=== PATIENT | female | born 1935 | race Caucasian/White ===

== ENCOUNTER 2017-01-05 17:39 | Emergency (ER) | payer MEDICARE, OTHER, MEDICAID ==
[2017-01-05] MEDS ORDERED: Sodium Chloride 0.9% 10 ML Syringe FLUSH PRN (18:06)
[2017-01-05] MEDS ORDERED: Sodium Chloride 0.9% 500 ML IV SCH (18:15)
--- NOTE | 2017-01-05 18:22 | EDM.PDOC ---
ED HPI GENERAL MEDICAL PROBLEM - General Chief Complaint: General Stated Complaint: hypotension, fatigue Time Seen by Provider: 01/05/17 17:55 Source of Information: Reports: Patient History Limitations: Reports: No limitations - History of Present Illness INITIAL COMMENTS - FREE TEXT/NARRATIVE: The patient presents with complaint of suprapubic pain, nausea, and bilateral costophrenic angle pain as well as lethargy and fatigue, myalgias, and chills. She also has nausea, but denies vomiting, diarrhea, hematochezia, and melena. She denies dysuria but reports foul smelling urine. She denies hematuria. She estevan vaginal discharge. She admits to headache but denies neck or back pain or stiffness. She denies cough or chest congestion. She denies fever. Left Hip Pain Score (Numeric/FACES): 10 - Related Data Allergies Allergy/AdvReac Type Severity Reaction Status Date / Time codeine Allergy Chest Verified 01/05/17 17:51 Presssure Home Meds: Home Meds Aspirin [Halfprin] 81 mg PO BRK 02/26/15 [History] Carisoprodol [Soma] 350 mg PO TID 02/26/15 [History] Fluticasone/Salmeterol [Advair 250-50 Diskus] 1 puff INH BID 02/26/15 [History] Gemfibrozil 600 mg PO BID 02/26/15 [History] Hydrocodone/Acetaminophen [Lortab 10-325 mg Tablet] 1 each PO DAILY PRN [History] Isosorbide Mononitrate [Imdur] 30 mg PO QPM 02/26/15 [History] Levothyroxine 75 mcg PO ACBREAKFAST 02/26/15 [History] Sucralfate [Carafate] 1 gm PO QID 02/26/15 [History] Tiotropium [Spiriva HandiHaler] 18 mcg INH QAM@0700 02/26/15 [History] amLODIPine [Norvasc] 5 mg PO QAM 02/26/15 [History] Albuterol Sulfate [Albuterol Sulfate HFA] 2 puff INH Q6HR 04/18/15 [History] Amitriptyline [Elavil] 50 mg PO BEDTIME 04/18/15 [History] Furosemide [Lasix] 40 mg PO DAILY 04/18/15 [History] Hydrocodone/Acetaminophen [[place] 10-325] 1 tab PO QID 04/18/15 [History] Potassium Chloride 20 meq PO BID 04/18/15 [History] cycloSPORINE [Restasis] 1 drop EYEBOTH BEDTIME 04/18/15 [History] Acetaminophen 650 mg PO Q12HR PRN 01/05/17 [History] Acetaminophen [Pain Relief] 650 mg PO 2000 01/05/17 [History] Albuterol/Ipratropium [DuoNeb 3.0-0.5 MG/3 ML] 1 appful INH Q4HR PRN 01/05/17 [ History] Calcium Carbonate [Tums] 1,000 mg PO Q6HR PRN 01/05/17 [History] Carvedilol [Coreg] 12.5 mg PO BIDM 01/05/17 [History] DULoxetine HCl [Cymbalta] 30 mg PO DAILY 01/05/17 [History] Ferrous Sulfate 325 mg PO DAILY 01/05/17 [History] Gabapentin [Neurontin] 200 mg PO TID 01/05/17 [History] Lidocaine 1 each TP DAILY 01/05/17 [History] Nitroglycerin 0.4 mg SL ASDIRECTED PRN 01/05/17 [History] Saccharomyces Boulardii [Probiotic] 250 mg PO BID 01/05/17 [History] buPROPion [Wellbutrin XL] 300 mg PO DAILY 01/05/17 [History] clonazePAM [Klonopin] 0.5 mg PO BEDTIME 01/05/17 [History] Past Medical History Other HEENT History: wears glasses. - Past Surgical History Other Neurological Surgeries/Procedures: herniated disc surgery Other Musculoskeletal Surgeries/Procedures:: back surgery x 3 Social & Family History - Tobacco Use Smoking Status *Q: Current Every Day Smoker Years of Tobacco use: 60 Used Tobacco, but Quit: No Second Hand Smoke Exposure: No - Recreational Drug Use Recreational Drug Use: No ED ROS GENERAL - Review of Systems Review Of Systems: ROS reveals no pertinent complaints other than HPI. ED EXAM, GENERAL - Physical Exam Exam: See Below Exam Limited By: No limitations General Appearance: alert, WD/WN, no apparent distress Eye Exam: bilateral eye: EOMI, normal inspection, PERRL Ears: normal external exam, normal canal, hearing grossly normal, normal TMs Ear Exam: bilateral ear: auricle normal, canal normal, TM normal Nose: normal inspection, normal mucosa, no blood Throat/Mouth: Normal inspection, Normal lips, Normal teeth, Normal gums, Normal oropharynx, Normal voice, No airway compromise Head: atraumatic, normocephalic Neck: normal inspection, supple, non-tender, full range of motion, other (No nuchal rigidity.). No: lymphadenopathy (L), lymphadenopathy (R), tender lateral , tender midline Respiratory/Chest: no respiratory distress, lungs clear, normal breath sounds, no accessory muscle use, chest non-tender Cardiovascular: normal peripheral pulses, regular rate, rhythm, no edema, no gallop, no murmur, no rub Peripheral Pulses: 2+: radial (L), radial (R), dorsalis pedis (L), dorsalis pedis (R) GI/Abdominal: normal bowel sounds, soft, non tender, no organomegaly, no distention, other (Tenderness on palpation over bladder. ). No: distended, guarding, rigid, rebound, tender Back Exam: normal inspection, full range of motion, CVA tenderness (L), CVA tenderness (R). No: paraspinal tenderness, vertebral tenderness Extremities: normal inspection, normal range of motion, non-tender, no pedal edema, normal capillary refill. No: pedal edema, Loretta's Sign Neurological: alert, oriented, CN II-XII intact, normal cognition, normal gait, normal reflexes, no motor/sensory deficits Psychiatric: normal affect, normal mood Skin Exam: Warm, Dry, Intact, Normal color, No rash Course - Vital Signs Last Recorded V/S: Last Vital Signs Temp 37.1 C 01/05/17 17:40 Pulse 81 01/05/17 17:40 Resp 18 01/05/17 17:40 BP 71/45 L 01/05/17 17:40 Pulse Ox 97 01/05/17 17:40 - Orders/Labs/Meds Orders: Active Orders 24 hr Category Date Time Status Peripheral IV Care [RC] . DIRECTED Care 01/05/17 18:06 Active Abdomen Pelvis w Cont [CT] Stat Exams 01/05/17 18:51 Taken CULTURE URINE [RM] Stat Lab 01/05/17 18:35 Ordered Sodium Chloride 0.9% [Normal Saline] 500 ml Med 01/05/17 18:15 Active IV .BOLUS Sodium Chloride 0.9% [Saline Flush] Med 01/05/17 18:06 Active 10 ml FLUSH ASDIRECTED PRN Peripheral IV Insertion Adult [OM.PC] Routine Oth 01/05/17 18:06 Ordered Medication Orders Sodium Chloride (Normal Saline) 500 mls @ 500 mls/hr IV .BOLUS ROSITA Last Admin: 01/05/17 18:45 Dose: 500 mls/hr Sodium Chloride (Saline Flush) 10 ml FLUSH ASDIRECTED PRN PRN Reason: Keep Vein Open Labs: Laboratory Tests 01/05/17 01/05/17 01/05/17 Range/Units 18:06 18:06 18:35 WBC 8.8 (4.0-10.2) K/uL RBC 3.01 L (3.77-5.09) M/uL Hgb 9.2 L (11.7-15.5) g/dL Hct 28.1 L (34.0-46.0) % MCV 93.4 (84.0-98.0) fL MCH 30.6 (28.2-33.3) pg MCHC 32.7 (31.7-36.0) g/dL RDW 13.3 (11.2-14.1) % Plt Count 241 (150-350) K/uL Neut % (Auto) 85.8 H (45.0-80.0) % Lymph % (Auto) 8.9 L (10.0-50.0) % Walsh % (Auto) 5.0 (2.0-14.0) % Eos % (Auto) 0.1 (0.0-5.0) % Baso % (Auto) 0.2 (0.0-2.0) % Neut # (Auto) 7.50 H (1.40-7.00) K/uL Lymph # (Auto) 0.78 (0.50-3.50) K/uL Walsh # (Auto) 0.44 (0.00-1.00) K/uL Eos # (Auto) 0.01 (0.00-0.50) K/uL Baso # (Auto) 0.02 (0.00-0.20) K/uL Sodium 133 L (136-145) mmol/L Potassium 3.6 (3.5-5.1) mmol/L Chloride 100 (98-107) mmol/L Carbon Dioxide 21.6 (21.0-32.0) mmol/L BUN 13 (7-18) mg/dL Creatinine 0.71 (0.51-1.17) mg/dL Est Cr Clr Drug Dosing 44.28 mL/min Estimated GFR (MDRD) > 60 mL/min Glucose 93 (74-106) mg/dL Calcium 8.6 (8.5-10.1) mg/dL Total Bilirubin 0.3 (0.2-1.0) mg/dL AST 56 H (15-37) U/L ALT 21 (12-78) U/L Alkaline Phosphatase 94 (46-116) IU/L C-Reactive Protein 17.1 H (<=0.9) mg/dL Total Protein 6.5 (6.4-8.2) g/dL Albumin 2.5 L (3.4-5.0) g/dL Specimen Type Urincc Urine Color Yellow Urine Appearance Slightly cloudy Urine pH 5.5 (5.0-9.0) Ur Specific [place] <= 1.005 (1.005-1.030) Urine Protein Negative (NEGATIVE) mg/dL Urine Glucose (UA) Negative (NEGATIVE) mg/dL Urine Ketones Negative (NEGATIVE) mg/dL Urine Occult Blood Negative (NEGATIVE) Urine Nitrite Positive H (NEGATIVE) Urine Bilirubin Negative (NEGATIVE) Urine Urobilinogen 0.2 (0.2-1.0) E.U./dL Ur Leukocyte Esterase Small H (NEGATIVE) Urine RBC Not seen /HPF Urine WBC 5-10 H /HPF Ur Epithelial Cells Rare /LPF Urine Bacteria Many H (NONE TO FEW) /HPF Meds: Medications Generic Name Dose Route Start Last Admin Trade Name Freq PRN Reason Stop Dose Admin Sodium Chloride 500 mls @ 500 mls/hr 01/05/17 18:15 01/05/17 18:45 Normal Saline IV 500 mls/hr .BOLUS ROSITA Administration Sodium Chloride 10 ml 01/05/17 18:06 Saline Flush FLUSH ASDIRECTED PRN Keep Vein Open Discontinued Medications Generic Name Dose Route Start Last Admin Trade Name Freq PRN Reason Stop Dose Admin Iopamidol 100 ml 01/05/17 19:30 01/05/17 20:08 Isovue-300 (61%) IVPUSH 01/05/17 19:31 100 ml ONETIME ONE Administration - Radiology Interpretation Free Text/Narrative:: CT of the abdomen and pelvis shows bilateral benign renal cysts and dilatation of biliary tree s/p cholecystectomy. Departure - Departure Time of Disposition: 21:18 Disposition: Home, Self-Care 01 Clinical Impression: Hyponatremia, Normocytic anemia, Elevated C-reactive protein (CRP), Hypoalbuminemia, Elevated AST (SGOT) UTI (urinary tract infection) Qualifiers: Urinary tract infection type: site unspecified Hematuria presence: without hematuria Qualified Code(s): N39.0 - Urinary tract infection, site not specified Forms: ED Department Discharge - My Orders Last 24 Hours: My Active Orders 01/05/17 18:06 Peripheral IV Care [RC] . DIRECTED Sodium Chloride 0.9% [Saline Flush] 10 ml FLUSH ASDIRECTED PRN Peripheral IV Insertion Adult [OM.PC] Routine 01/05/17 18:15 Sodium Chloride 0.9% [Normal Saline] 500 ml IV .BOLUS 01/05/17 18:35 CULTURE URINE [RM] Stat 01/05/17 18:51 Abdomen Pelvis w Cont [CT] Stat - Assessment/Plan Last 24 Hours: My Active Orders 01/05/17 18:06 Peripheral IV Care [RC] . DIRECTED Sodium Chloride 0.9% [Saline Flush] 10 ml FLUSH ASDIRECTED PRN Peripheral IV Insertion Adult [OM.PC] Routine 01/05/17 18:15 Sodium Chloride 0.9% [Normal Saline] 500 ml IV .BOLUS 01/05/17 18:35 CULTURE URINE [RM] Stat 01/05/17 18:51 Abdomen Pelvis w Cont [CT] Stat Assessment:: UTI. Plan: 1. Given NS 500 mL IV bolus in ER. 2. Reassured patient that CT of abdomen pelvis shows no acute abnormalities. 3. Take-home prescription for Ciprofloxacin 500 mg tabs, 1 tab PO BID, 3 days ( 6 tabs) and prescription for further 4 day course (8 tabs), total of 7 days. 4. OTC acetaminophen 325-650 mg or ibuprofen 400 mg every 6 hours as needed for fever or discomfort. 5. Increase fluid intake. 6. Get plenty of rest. 7. Followup with PCP in 3-5 days if symptoms persist or sooner if symptoms worsen and for next available for anemia and hyponatremia. 8. Return to ER with fever > 101 F not responsive to acetaminophen or ibuprofen , blood in urine, inability to urinate, mental status changes, or other emergent concerns.
[2017-01-05 18:27] LABS: CHLORIDE,CL 100 mmol/L (98-107); SODIUM,NA 133 mmol/L (136-145)
[2017-01-05] MEDS ORDERED: Iopamidol 612 MG/ML 100 ML Bottle IVPUSH ONE (19:30)
[2017-01-06 11:12] VITALS: BP 116/44
== END 2017-01-05 21:40 | disposition home or self-care (01) ==
LOC: LL.ED 17:39
DX: D64.9 Anemia, unspecified (principal); E87.1 Hypo-osmolality and hyponatremia; E88.09 Other disorders of plasma-protein metabolism, not elsewhere classified; R79.89 Other specified abnormal findings of blood chemistry; N39.0 Urinary tract infection, site not specified; F17.210 Nicotine dependence, cigarettes, uncomplicated; Z88.5 Allergy status to narcotic agent; Z79.82 Long term (current) use of aspirin; Z79.899 Other long term (current) drug therapy; Z98.890 Other specified postprocedural states
CPT/HCPCS: 36415; 74177; 80053; 81001; 85025; 86140; 87086; 87088; 96360; 99285; J7040; Q9967; 87186; 99284

== ENCOUNTER 2017-01-07 14:15 | Inpatient (IN) | payer MEDICARE, OTHER, MEDICAID ==
[2017-01-07] MEDS ORDERED: Sodium Chloride 0.9% 1,000 ML IV SCH (15:00)
[2017-01-07] MEDS ORDERED: Ondansetron 4 MG/2 ML SDV IVPUSH PRN (15:00)
--- NOTE | 2017-01-07 15:36 | PCM.HP ---
H&P History of Present Illness - General Date of Service: 01/07/17 Admit Problem/Dx: Admission Diagnosis/Problem Admission Diagnosis/Problem Bleeding Source of Information: Patient, EMS notes reviewed History Limitations: Reports: No limitations - History of Present Illness Initial Comments - Free Text/Narative: Patient hasnt been feeling well for about a week. Complains of nausea, no emesis. Recently seen in the ER and diagnosed with bladder infection. Hgb noted to drop 3 points over the last week. Patient has history of anemia. 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 Occult was negative in the clinic during the examination. Onset of Symptoms: Reports: gradual - Related Data Allergies/Adverse Reactions: Allergies Allergy/AdvReac Type Severity Reaction Status Date / Time codeine Allergy Chest Verified 01/05/17 17:51 Presssure Home Medications: Home Meds Aspirin [Halfprin] 81 mg PO BRK 02/26/15 [History] Carisoprodol [Soma] 350 mg PO TID 02/26/15 [History] Fluticasone/Salmeterol [Advair 250-50 Diskus] 1 puff INH BID 02/26/15 [History] Gemfibrozil 600 mg PO BID 02/26/15 [History] Hydrocodone/Acetaminophen [Lortab 10-325 mg Tablet] 1 each PO DAILY PRN [History] Isosorbide Mononitrate [Imdur] 30 mg PO QPM 02/26/15 [History] Levothyroxine 75 mcg PO ACBREAKFAST 02/26/15 [History] Sucralfate [Carafate] 1 gm PO QID 02/26/15 [History] Tiotropium [Spiriva HandiHaler] 18 mcg INH QAM@0700 02/26/15 [History] amLODIPine [Norvasc] 5 mg PO QAM 02/26/15 [History] Albuterol Sulfate [Albuterol Sulfate HFA] 2 puff INH Q6HR 04/18/15 [History] Amitriptyline [Elavil] 50 mg PO BEDTIME 04/18/15 [History] Furosemide [Lasix] 40 mg PO DAILY 04/18/15 [History] Hydrocodone/Acetaminophen [[place] 10-325] 1 tab PO QID 04/18/15 [History] Potassium Chloride 20 meq PO BID 04/18/15 [History] cycloSPORINE [Restasis] 1 drop EYEBOTH BEDTIME 04/18/15 [History] Acetaminophen 650 mg PO Q12HR PRN 01/05/17 [History] Acetaminophen [Pain Relief] 650 mg PO 2000 01/05/17 [History] Albuterol/Ipratropium [DuoNeb 3.0-0.5 MG/3 ML] 1 appful INH Q4HR PRN 01/05/17 [ History] Calcium Carbonate [Tums] 1,000 mg PO Q6HR PRN 01/05/17 [History] Carvedilol [Coreg] 12.5 mg PO BIDM 01/05/17 [History] Ciprofloxacin [Ciprofloxacin HCl] 500 mg PO BID #8 tablet 01/05/17 [Rx] DULoxetine HCl [Cymbalta] 30 mg PO DAILY 01/05/17 [History] Ferrous Sulfate 325 mg PO DAILY 01/05/17 [History] Gabapentin [Neurontin] 200 mg PO TID 01/05/17 [History] Lidocaine 1 each TP DAILY 01/05/17 [History] Nitroglycerin 0.4 mg SL ASDIRECTED PRN 01/05/17 [History] buPROPion [Wellbutrin XL] 300 mg PO DAILY 01/05/17 [History] clonazePAM [Klonopin] 0.5 mg PO BEDTIME 01/05/17 [History] Non-Formulary Medication [NF Drug] 250 mg PO BID 01/07/17 [History] Past Medical History HEENT History: Reports: Cataract Other HEENT History: wears glasses. 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 Respiratory History: Reports: COPD Gastrointestinal History: Reports: Colon polyp, GI bleed Other Gastrointestinal History: appendectomy, cholecystectomy, hysterectomy Musculoskeletal History: Reports: Arthritis, Back pain, chronic, Osteoarthritis Other Musculoskeletal History: back surgery to lumbar spine Psychiatric History: Reports: Anxiety, Depression - Past Surgical History Other Neurological Surgeries/Procedures: herniated disc surgery Other Musculoskeletal Surgeries/Procedures:: back surgery x 3 Social & Family History - Family History Endocrine/Metabolic: Reports: Diabetes, type II (sister) - Tobacco Use Smoking Status *Q: Current Every Day Smoker Years of Tobacco use: 60 Packs/Tins Daily: 0.1 Used Tobacco, but Quit: No Second Hand Smoke Exposure: No - Recreational Drug Use Recreational Drug Use: No H&P Review of Systems - Review of Systems: Review Of Systems: See Below General: Reports: fatigue, decreased appetite HEENT: Reports: no symptoms Pulmonary: Reports: No Symptoms Cardiovascular: Reports: no symptoms Gastrointestinal: Reports: Decreased appetite, Difficulty swallowing, Nausea Genitourinary: Reports: no symptoms Musculoskeletal: Reports: back pain Psychiatric: Reports: depression, anxiety Neurological: Reports: No Symptoms Hematologic/Lymphatic: Reports: no symptoms Immunologic: Reports: no symptoms Exam - Exam Exam: See Below - Vital Signs Vital Signs: Last Vital Signs Temp 95.2 F L 01/07/17 14:36 Pulse 73 01/07/17 14:36 Resp 20 01/07/17 14:36 BP 108/51 L 01/07/17 14:36 Pulse Ox 92 L 01/07/17 14:36 Weight: 103 lb - Exam General: alert, oriented, cooperative HEENT: Conjunctiva clear, EACs clear, EOMI, Hearing intact, Mucosa moist & pink , Nares patent Neck: supple, trachea midline Lungs: Normal respiratory effort, Decreased breath sounds Cardiovascular: regular rate, regular rhythm, normal S1, normal S2, systolic murmur Abdomen: normal bowel sounds, soft Rectal (Female) Exam: Normal Exam, Normal rectal tone, Heme - stool Back Exam: normal inspection Extremities: normal inspection Peripheral Pulses: 1+: dorsalis pedis (L), dorsalis pedis (R) Skin: warm, dry, intact Neuro Extensive - Mental Status: alert, oriented x3, normal mood/affect, normal cognition, memory intact Neuro Extensive - Motor, Sensory, Reflexes: CN II-XII intact, normal gait, normal reflexes Psychiatric: alert, normal affect, normal mood, anxious *Q Meaningful Use (ADM) - VTE *Q VTE Criteria *Q: - Stroke *Q Stroke Criteria *Q: - AMI *Q AMI Criteria *Q: - Problem List (1) GI bleed SNOMED Code(s): 99780861 ICD Code: K92.2 - GASTROINTESTINAL HEMORRHAGE, UNSPECIFIED Status: Acute Current Visit: Yes Qualifiers: GI bleed type/associated pathology: unspecified gastrointestinal hemorrhage type Qualified Code(s): K92.2 - Gastrointestinal hemorrhage, unspecified (2) Anemia SNOMED Code(s): 231212576 ICD Code: D64.9 - ANEMIA, UNSPECIFIED Status: Acute Current Visit: Yes (3) UTI (urinary tract infection) SNOMED Code(s): 79688829 ICD Code: N39.0 - URINARY TRACT INFECTION, SITE NOT SPECIFIED Status: Acute Current Visit: No Qualifiers: Urinary tract infection type: site unspecified Hematuria presence: without hematuria Qualified Code(s): N39.0 - Urinary tract infection, site not specified Problem List Initiated/Reviewed/Updated: Yes Orders Last 24hrs: Active Orders 24 hr Category Date Time Status Patient Status [ADT] Routine ADT 01/07/17 14:36 Ordered Bedrest Bedside Commode [RC] ASDIRECTED Care 01/07/17 14:36 Ordered Cardiac Monitoring [RC] CONTINUOUS Care 01/07/17 14:39 Ordered Intake and Output [RC] QSHIFT Care 01/07/17 14:39 Ordered May Shower [RC] ASDIRECTED Care 01/07/17 14:36 Ordered Oxygen Therapy [RC] PRN Care 01/07/17 14:36 Ordered Peripheral IV Care [RC] . DIRECTED Care 01/07/17 14:41 Ordered VTE/DVT Education [RC] PER UNIT ROUTINE Care 01/07/17 14:36 Ordered Vital Signs [RC] Q4H Care 01/07/17 14:36 Ordered Consult to Case Management [CONS] Routine Cons 01/07/17 14:36 Ordered PT Evaluation and Treatment [CONS] Routine Cons 01/07/17 14:36 Ordered Clear Liquid Diet [DIET] Diet 01/07/17 Dinner Ordered Abdomen 1V Flat [CR] Routine Exams 01/07/17 14:36 Ordered BLOOD SMEARS TO PATHOLOGIST [REF] Urgent Lab 01/07/17 15:09 Ordered C-REACTIVE PROTEIN [CHEM] DAILY Lab 01/08/17 05:11 Ordered C-REACTIVE PROTEIN [CHEM] DAILY Lab 01/09/17 05:11 Ordered C-REACTIVE PROTEIN [CHEM] DAILY Lab 01/10/17 05:11 Ordered C-REACTIVE PROTEIN [CHEM] DAILY Lab 01/11/17 05:11 Ordered CBC WITH AUTO DIFF [HEME] DAILY Lab 01/08/17 05:11 Ordered CBC WITH AUTO DIFF [HEME] DAILY Lab 01/09/17 05:11 Ordered CBC WITH AUTO DIFF [HEME] DAILY Lab 01/10/17 05:11 Ordered CBC WITH AUTO DIFF [HEME] DAILY Lab 01/11/17 05:11 Ordered COMPREHENSIVE METABOLIC PN,CMP [CHEM] DAILY Lab 01/08/17 05:11 Ordered COMPREHENSIVE METABOLIC PN,CMP [CHEM] DAILY Lab 01/09/17 05:11 Ordered COMPREHENSIVE METABOLIC PN,CMP [CHEM] DAILY Lab 01/10/17 05:11 Ordered COMPREHENSIVE METABOLIC PN,CMP [CHEM] DAILY Lab 01/11/17 05:11 Ordered FOLATE [REF] Urgent Lab 01/07/17 15:09 Ordered IRON PANEL IRON/TRANSFERR/FERR [REF] Urgent Lab 01/07/17 15:09 Ordered OCCULT BLOOD DIAGNOSTIC [OP] DAILY Lab 01/07/17 14:46 Uncollected OCCULT BLOOD DIAGNOSTIC [OP] DAILY Lab 01/08/17 14:46 Uncollected OCCULT BLOOD DIAGNOSTIC [OP] DAILY Lab 01/09/17 14:46 Uncollected RED BLOOD CELLS LP [BBK] Routine Lab 01/07/17 14:43 Ordered TYPE AND SCREEN [BBK] Routine Lab 01/07/17 14:43 Ordered VITAMIN B12 [CHEM] Urgent Lab 01/07/17 15:09 Ordered Furosemide [Lasix] Med 01/07/17 19:00 Once 40 mg IVPUSH ONETIME ONE Nicotine [Habitrol] Med 01/08/17 08:00 Ordered 21 mg TRDERM DAILY Ondansetron [Zofran] Med 01/07/17 14:36 Ordered 4 mg IVPUSH Q6H PRN Pantoprazole [ProTONIX IV] 80 mg Med 01/07/17 14:45 Ordered Sodium Chloride 0.9% [Normal Saline] 100 ml IV .Continuous Sodium Chloride 0.9% @ 50 MLS/HR(1000ml) Med 01/07/17 15:00 Ordered Sodium Chloride 0.9% [Normal Saline] 1,000 ml IV ASDIRECTED Sodium Chloride 0.9% [Saline Flush] Med 01/07/17 14:36 Ordered 10 ml FLUSH ASDIRECTED PRN Peripheral IV Insertion Adult [OM.PC] Routine Oth 01/07/17 14:36 Ordered Transfuse PRBC [Transfuse Red Blood Cells] [COMM] Oth 01/07/17 15:13 Ordered Routine Resuscitation Status Routine Resus Stat 01/07/17 14:36 Ordered Medication Orders Furosemide (Lasix) 40 mg IVPUSH ONETIME ONE Stop: 01/07/17 19:01 Pantoprazole Sodium 80 mg/ (Sodium Chloride) 100 mls @ 10 mls/hr IV .Continuous ROSITA Sodium Chloride (Normal Saline) 1,000 mls @ 50 mls/hr IV ASDIRECTED ROSITA Nicotine (Habitrol) 21 mg TRDERM DAILY ROSITA Ondansetron HCl (Zofran) 4 mg IVPUSH Q6H PRN PRN Reason: Nausea/Vomiting Sodium Chloride (Saline Flush) 10 ml FLUSH ASDIRECTED PRN PRN Reason: Keep Vein Open Assessment/Plan Comment:: 01/07/2017 Patient is admitted to inpatient started on IV PRotonix and will transfuse two units of PRBCS. Discussed with Dr Mann in regards to the plan of care. Patient is wanting hospitalization in [place] and [facility], daughter (Ann) called. Monitor hgb. Occult stools ordered. Iron panel and further anemia workup ordered. Continue IV Cipro for UTI Tracy Aguilar,PHOTOVOLTAIC SUBCONTRACTOR
[2017-01-07] MEDS: Pantoprazole 80 MG in Sodium Chloride 0.9% 100 ML IV SCH (15:45)
[2017-01-07] MEDS ORDERED: Albuterol/Ipratropium 3.0-0.5 MG/3 ML Neb Soln INH PRN (16:07)
[2017-01-07] MEDS ORDERED: Calcium Carbonate 500 MG Tab.Chew PO PRN (16:07)
[2017-01-07] MEDS ORDERED: Acetaminophen/HYDROcodone 325-10 MG Tab PO PRN (16:07)
[2017-01-07] MEDS ORDERED: Nitroglycerin 0.4 MG Tab.SL SL PRN (16:07)
[2017-01-07] MEDS: Nicotine 21 MG/24 Hr Patch TRDERM SCH (16:20)
[2017-01-07] MEDS: Lactobacillus Rhamnosus GG (Probiotic) Cap PO SCH (17:19)
[2017-01-07] MEDS: Carvedilol 12.5 MG Tab PO SCH (17:19)
[2017-01-07] MEDS: Formoterol/Mometasone 200-5 MCG 8.8 GM Inhaler IH SCH (17:19)
[2017-01-07] MEDS: Sucralfate 1 GM Tab PO SCH ×2 (17:19→23:01)
[2017-01-07] MEDS: Gabapentin 100 MG Cap PO SCH (17:20)
[2017-01-07] MEDS: Potassium Chloride 20 MEQ Tab.ER PO SCH (17:20)
[2017-01-07] MEDS: Isosorbide Mononitrate 30 MG Tab.ER PO SCH (17:20)
[2017-01-07] MEDS ORDERED: Furosemide 40 MG/4 ML VIAL IVPUSH ONE (19:00)
[2017-01-07] MEDS: REMOVE LIDOCAINE TRDERM SCH (19:36)
[2017-01-07] MEDS: Acetaminophen/HYDROcodone 325-10 MG Tab PO SCH (20:16)
[2017-01-07] MEDS: ClonazePAM 0.5 MG Tab PO SCH (20:17)
[2017-01-07] MEDS: Amitriptyline 25 MG Tab PO SCH (20:17)
[2017-01-07] MEDS: Furosemide 40 MG/4 ML VIAL IVPUSH ONE ×2 (23:00→23:15)
[2017-01-07] MEDS: Albuterol 8 GM Inhaler INH SCH (23:01)
[2017-01-07] MEDS: Ciprofloxacin in D5W 400 MG in Premix Bag 1 BAG IV SCH ×2 (23:02)
[2017-01-07] MEDS: Sodium Chloride 0.9% 10 ML Syringe FLUSH PRN (23:16)
[2017-01-08] MEDS: Pantoprazole 80 MG in Sodium Chloride 0.9% 100 ML IV SCH (04:14)
[2017-01-08] MEDS: Albuterol 8 GM Inhaler INH SCH ×4 (04:15→21:39)
[2017-01-08 07:13] LABS: CHLORIDE,CL 107 mmol/L (98-107); SODIUM,NA 140 mmol/L (136-145)
[2017-01-08] MEDS: Tiotropium Inhaler 18 MCG Inhalation Powder Cap Kit of 5 INH SCH (07:39)
[2017-01-08] MEDS: Sucralfate 1 GM Tab PO SCH ×4 (07:40→21:39)
[2017-01-08] MEDS: Furosemide 40 MG Tab PO SCH (07:41)
[2017-01-08] MEDS: Levothyroxine 75 MCG Tab PO SCH (07:41)
[2017-01-08] MEDS: Gabapentin 100 MG Cap PO SCH ×3 (07:41→18:11)
[2017-01-08] MEDS: Potassium Chloride 20 MEQ Tab.ER PO SCH ×2 (07:41→18:12)
[2017-01-08] MEDS: Lactobacillus Rhamnosus GG (Probiotic) Cap PO SCH ×2 (07:41→18:11)
[2017-01-08] MEDS: Carvedilol 12.5 MG Tab PO SCH ×2 (07:41→19:35)
[2017-01-08] MEDS: Lidocaine 5% 700 MG Patch TOP SCH (07:42)
[2017-01-08] MEDS: Acetaminophen/HYDROcodone 325-10 MG Tab PO SCH ×4 (07:42→19:25)
[2017-01-08] MEDS: Formoterol/Mometasone 200-5 MCG 8.8 GM Inhaler IH SCH ×2 (07:43→18:12)
[2017-01-08] MEDS: Nicotine 21 MG/24 Hr Patch TRDERM SCH ×2 (07:45→16:38)
[2017-01-08] MEDS: Ciprofloxacin in D5W 400 MG in Premix Bag 1 BAG IV SCH ×4 (07:45→19:23)
[2017-01-08] MEDS: Sodium Chloride 0.9% 10 ML Syringe FLUSH PRN ×3 (07:49→19:25)
[2017-01-08] MEDS ORDERED: amLODIPine 5 MG Tab PO SCH (08:00)
[2017-01-08] MEDS ORDERED: Potassium Chloride 20 MEQ Tab.ER PO ONE ×3 (10:30→16:00)
[2017-01-08] MEDS: Folic Acid 1 MG Tab PO SCH (11:03)
[2017-01-08] MEDS: Isosorbide Mononitrate 30 MG Tab.ER PO SCH (18:11)
[2017-01-08] MEDS: Pantoprazole 40 MG Vial IVPUSH SCH (19:23)
[2017-01-08] MEDS: Amitriptyline 25 MG Tab PO SCH (19:24)
[2017-01-08] MEDS: ClonazePAM 0.5 MG Tab PO SCH (19:24)
[2017-01-08] MEDS: REMOVE LIDOCAINE TRDERM SCH (19:35)
--- NOTE | 2017-01-08 22:46 | PCM.PN ---
- General Info Date of Service: 01/08/17 Admission Dx/Problem (Free Text): Admission Diagnosis/Problem Admission Diagnosis/Problem Bleeding Functional Status: Reports: pain controlled, tolerating diet - Review of Systems General: Reports: No Symptoms HEENT: Reports: no symptoms Pulmonary: Reports: no symptoms Cardiovascular: Reports: No Symptoms Gastrointestinal: Reports: No symptoms Genitourinary: Reports: no symptoms Musculoskeletal: Reports: no symptoms Skin: Reports: no symptoms Neurological: Reports: No Symptoms Psychiatric: Reports: no symptoms - Patient Data Vitals - most recent: Last Vital Signs Temp 97.6 F 01/08/17 19:34 Pulse 66 01/08/17 19:34 Resp 18 01/08/17 19:34 BP 121/58 L 01/08/17 19:34 Pulse Ox 97 01/08/17 19:34 Weight - most recent: 102 lb 15.999 oz I&O - last 24 hours: Intake & Output 01/08/17 01/08/17 01/08/17 06:59 14:59 22:59 Intake Total 1202 1279 610 Output Total 1700 1200 600 Balance -498 79 10 Lab Results last 24 hrs: Laboratory Results - last 24 hr 01/07/17 01/08/17 01/08/17 Range/Units 15:20 06:30 06:30 WBC 7.1 (4.0-10.2) K/uL RBC 3.88 (3.77-5.09) M/uL Hgb 11.5 L D (11.7-15.5) g/dL Hct 34.7 (34.0-46.0) % MCV 89.4 D (84.0-98.0) fL MCH 29.6 (28.2-33.3) pg MCHC 33.1 (31.7-36.0) g/dL RDW 15.3 H (11.2-14.1) % Plt Count 286 (150-350) K/uL Neut % (Auto) 66.8 (45.0-80.0) % Lymph % (Auto) 20.5 (10.0-50.0) % [place] % (Auto) 11.8 (2.0-14.0) % Eos % (Auto) 0.6 (0.0-5.0) % Baso % (Auto) 0.3 (0.0-2.0) % Neut # (Auto) 4.75 (1.40-7.00) K/uL Lymph # (Auto) 1.46 (0.50-3.50) K/uL [place] # (Auto) 0.84 (0.00-1.00) K/uL Eos # (Auto) 0.04 (0.00-0.50) K/uL Baso # (Auto) 0.02 (0.00-0.20) K/uL Sodium 140 (136-145) mmol/L Potassium 3.1 L (3.5-5.1) mmol/L Chloride 107 (98-107) mmol/L Carbon Dioxide 21.5 (21.0-32.0) mmol/L BUN 6 L (7-18) mg/dL Creatinine 0.57 (0.51-1.17) mg/dL Est Cr Clr Drug Dosing 55.15 mL/min Estimated GFR (MDRD) > 60 mL/min Glucose 101 (74-106) mg/dL Calcium 8.5 (8.5-10.1) mg/dL Total Bilirubin 0.3 (0.2-1.0) mg/dL AST 31 (15-37) U/L ALT 20 (12-78) U/L Alkaline Phosphatase 86 (46-116) IU/L C-Reactive Protein 10.0 H (<=0.9) mg/dL Total Protein 6.3 L (6.4-8.2) g/dL Albumin 2.4 L (3.4-5.0) g/dL Blood Type O POSITIVE Gel Antibody Screen Negative Crossmatch See Detail Med Orders - Current: Current Medications Hydrocodone Bitart/Acetaminophen ([place] 325-10 Mg) 1 tab PO QID [facility] Last Admin: 01/08/17 19:25 Dose: 1 tab Hydrocodone Bitart/Acetaminophen ([place] 325-10 Mg) 1 tab PO DAILY PRN PRN Reason: Pain Last Admin: 01/08/17 14:33 Dose: 1 tab Albuterol (Ventolin Hfa) 0 gm INH Q6HR [facility] Last Admin: 01/08/17 21:39 Dose: 2 inh Albuterol/Ipratropium (Duoneb 3.0-0.5 Mg/3 Ml) 3 ml INH Q4HR PRN PRN Reason: Shortness of Breath Amitriptyline HCl (Elavil) 50 mg PO BEDTIME [facility] Last Admin: 01/08/17 19:24 Dose: 50 mg Calcium Carbonate/Glycine (Tums) 1,000 mg PO Q6HR PRN PRN Reason: Indigestion Carisoprodol (Soma) 350 mg PO TID [facility] Last Admin: 01/08/17 18:11 Dose: 350 mg Carvedilol (Coreg) 6.25 mg PO Q12HR [facility] Last Admin: 01/08/17 19:35 Dose: 6.25 mg Clonazepam (Klonopin) 0.5 mg PO BEDTIME [facility] Last Admin: 01/08/17 19:24 Dose: 0.5 mg Folic Acid (Folic Acid) 1 mg PO DAILY [facility] Last Admin: 01/08/17 11:03 Dose: 1 mg Furosemide (Lasix) 40 mg PO DAILY [facility] Last Admin: 01/08/17 07:41 Dose: 40 mg Gabapentin (Neurontin) 200 mg PO TID [facility] Last Admin: 01/08/17 18:11 Dose: 200 mg Ciprofloxacin/Dextrose 400 mg/ (Premix) 200 mls @ 200 mls/hr IV Q12HR [facility] Last Admin: 01/08/17 19:23 Dose: 200 mls/hr Isosorbide Mononitrate (Imdur) 30 mg PO QPM [facility] Last Admin: 01/08/17 18:11 Dose: 30 mg Lactobacillus Rhamnosus (Culturelle) 1 cap PO BID [facility] Last Admin: 01/08/17 18:11 Dose: 1 cap Levothyroxine Sodium (Levothyroxine) 75 mcg PO ACBREAKFAST [facility] Last Admin: 01/08/17 07:41 Dose: 75 mcg Lidocaine (Lidoderm 5%) 700 mg TOP DAILY [facility] Last Admin: 01/08/17 07:42 Dose: 700 mg Miscellaneous Information (Remove Patch) 1 ea TRDERM BEDTIME [facility] Last Admin: 01/08/17 19:35 Dose: 1 ea Miscellaneous Information (Remove Patch) 1 ea TRDERM DAILY@1600 [facility] Mometasone Furoate/Formoterol Fumar (Dulera 200-5 Mcg) 2 puff IH BID [facility] Last Admin: 01/08/17 18:12 Dose: 2 puff Nicotine (Habitrol) 21 mg TRDERM DAILY@1600 [facility] Last Admin: 01/08/17 16:38 Dose: Not Given Nitroglycerin (Nitrostat) 0.4 mg SL ASDIRECTED PRN PRN Reason: Chest Pain Ondansetron HCl (Zofran) 4 mg IVPUSH Q6H PRN PRN Reason: Nausea/Vomiting Pantoprazole Sodium (Protonix Iv) 40 mg IVPUSH BEDTIME [facility] Last Admin: 01/08/17 19:23 Dose: 40 mg Potassium Chloride (Klor-Con M20) 20 meq PO BID [facility] Last Admin: 01/08/17 18:12 Dose: 20 meq Sodium Chloride (Saline Flush) 10 ml FLUSH ASDIRECTED PRN PRN Reason: Keep Vein Open Last Admin: 01/08/17 19:25 Dose: 10 ml Sucralfate (Carafate) 1 gm PO QIDACANDBED [facility] Last Admin: 01/08/17 21:39 Dose: 1 gm Tiotropium [place] (Spiriva Handihaler) 18 mcg INH QAM@0700 [facility] Last Admin: 01/08/17 07:39 Dose: 1 inh Discontinued Medications Amlodipine Besylate (Norvasc) 5 mg PO QAM [facility] Carvedilol (Coreg) 12.5 mg PO BIDM [facility] Last Admin: 01/08/17 07:41 Dose: 12.5 mg Furosemide (Lasix) 40 mg IVPUSH ONETIME ONE Stop: 01/07/17 19:01 Last Admin: 01/07/17 19:29 Dose: 40 mg Furosemide (Lasix) 40 mg IVPUSH ONETIME ONE Stop: 01/07/17 22:01 Last Admin: 01/07/17 23:15 Dose: Not Given Pantoprazole Sodium 80 mg/ (Sodium Chloride) 100 mls @ 10 mls/hr IV .Continuous [facility] Last Admin: 01/08/17 04:14 Dose: 10 mls/hr Sodium Chloride (Normal Saline) 1,000 mls @ 50 mls/hr IV ASDIRECTED [facility] Last Admin: 01/07/17 15:46 Dose: 50 mls/hr Miscellaneous Information (Remove Patch) 1 ea TRDERM DAILY [facility] Last Admin: 01/08/17 07:45 Dose: 1 ea Nicotine (Habitrol) 21 mg TRDERM DAILY [facility] Last Admin: 01/08/17 07:45 Dose: Not Given Potassium Chloride (Klor-Con M20) 20 meq PO ONETIME ONE Stop: 01/08/17 10:31 Last Admin: 01/08/17 11:03 Dose: 20 meq Potassium Chloride (Klor-Con M20) 20 meq PO ONETIME ONE Stop: 01/08/17 14:01 Last Admin: 01/08/17 14:32 Dose: 20 meq Potassium Chloride (Klor-Con M20) 20 meq PO ONETIME ONE Stop: 01/08/17 16:01 Last Admin: 01/08/17 16:36 Dose: 20 meq - Exam General: alert, cooperative, no acute distress HEENT: Mucous membr. moist/pink Neck: trachea midline, no JVD Lungs: Clear to auscultation, Normal respiratory effort Cardiovascular: Regular Rate, Regular Rhythm Abdomen: bowel sounds present, soft, no tenderness, no distension (Female) Exam: Deferred Back Exam: decreased range of motion Extremities: no edema Skin: warm, dry, intact Neurological: no new focal deficit Psy/Mental Status: alert, depressed - Problem List & Annotations (1) Anemia SNOMED Code(s): 121062350 Code(s): D64.9 - ANEMIA, UNSPECIFIED Status: Acute Priority: High Current Visit: Yes Qualifiers: Anemia type: folate deficiency Folate deficiency anemia type: unspecified folate deficiency Qualified Code(s): D52.9 - Folate deficiency anemia, unspecified (2) GI bleed SNOMED Code(s): 48548825 Code(s): K92.2 - GASTROINTESTINAL HEMORRHAGE, UNSPECIFIED Status: Acute Priority: High Current Visit: Yes Qualifiers: GI bleed type/associated pathology: unspecified gastrointestinal hemorrhage type Qualified Code(s): K92.2 - Gastrointestinal hemorrhage, unspecified (3) Abdominal pain of unknown cause SNOMED Code(s): 530464909 Code(s): R10.9 - UNSPECIFIED ABDOMINAL PAIN Status: Acute Priority: High Current Visit: No (4) Anxiety SNOMED Code(s): 12035899 Code(s): F41.9 - ANXIETY DISORDER, UNSPECIFIED Status: Acute Current Visit: No (5) Generalized weakness SNOMED Code(s): 47564749 Code(s): R53.1 - WEAKNESS Status: Acute Current Visit: No (6) UTI (urinary tract infection) SNOMED Code(s): 86712204 Code(s): N39.0 - URINARY TRACT INFECTION, SITE NOT SPECIFIED Status: Acute Priority: Medium Current Visit: No Qualifiers: Urinary tract infection type: site unspecified Hematuria presence: without hematuria Qualified Code(s): N39.0 - Urinary tract infection, site not specified - Problem List Review Problem List Initiated/Reviewed/Updated: Yes - My Orders Last 24 Hours: My Active Orders 01/08/17 10:15 Folic Acid 1 mg PO DAILY 01/08/17 16:00 Nicotine [Habitrol] 21 mg TRDERM DAILY@1600 01/08/17 20:00 Carvedilol [Coreg] 6.25 mg PO Q12HR Pantoprazole [ProTONIX IV] 40 mg IVPUSH BEDTIME 01/08/17 Lunch Regular Diet [DIET] 01/09/17 05:11 MAGNESIUM [CHEM] Routine - Plan Plan:: 01/07/2017 Patient is admitted to inpatient started on IV PRotonix and will transfuse two units of PRBCS. Discussed with Dr Mann in regards to the plan of care. Patient is wanting hospitalization in [place] and [facility], daughter (Ann) called. Monitor hgb. Occult stools ordered. Iron panel and further anemia workup ordered. Continue IV Cipro for UTI Tracy Aguilar,[employer]PERT
[2017-01-09] MEDS: Albuterol 8 GM Inhaler INH SCH ×4 (05:58→21:06)
[2017-01-09] MEDS: Lidocaine 5% 700 MG Patch TOP SCH (07:41)
[2017-01-09] MEDS: Potassium Chloride 20 MEQ Tab.ER PO SCH ×2 (07:42→17:46)
[2017-01-09] MEDS: Lactobacillus Rhamnosus GG (Probiotic) Cap PO SCH ×2 (07:42→17:46)
[2017-01-09] MEDS: Formoterol/Mometasone 200-5 MCG 8.8 GM Inhaler IH SCH ×2 (07:42→17:46)
[2017-01-09] MEDS: Tiotropium Inhaler 18 MCG Inhalation Powder Cap Kit of 5 INH SCH (07:42)
[2017-01-09] MEDS: Ciprofloxacin in D5W 400 MG in Premix Bag 1 BAG IV SCH ×4 (07:42→21:06)
[2017-01-09] MEDS: Gabapentin 100 MG Cap PO SCH ×3 (07:43→17:46)
[2017-01-09] MEDS: Furosemide 40 MG Tab PO SCH (07:43)
[2017-01-09] MEDS: Carvedilol 12.5 MG Tab PO SCH (07:43)
[2017-01-09] MEDS: Levothyroxine 75 MCG Tab PO SCH (07:43)
[2017-01-09] MEDS: Acetaminophen/HYDROcodone 325-10 MG Tab PO SCH ×4 (07:43→21:07)
[2017-01-09] MEDS: Sucralfate 1 GM Tab PO SCH ×4 (07:44→21:06)
[2017-01-09] MEDS: Sodium Chloride 0.9% 10 ML Syringe FLUSH PRN (07:44)
[2017-01-09] MEDS: Folic Acid 1 MG Tab PO SCH (07:44)
[2017-01-09 07:48] LABS: CHLORIDE,CL 106 mmol/L (98-107); SODIUM,NA 139 mmol/L (136-145)
[2017-01-09] MEDS: Nicotine 21 MG/24 Hr Patch TRDERM SCH (15:58)
[2017-01-09] MEDS: Isosorbide Mononitrate 30 MG Tab.ER PO SCH (17:46)
--- NOTE | 2017-01-09 18:04 | PCM.PN ---
- General Info Date of Service: 01/09/17 Admission Dx/Problem (Free Text): Admission Diagnosis/Problem Admission Diagnosis/Problem Bleeding Functional Status: Reports: pain controlled, tolerating diet - Review of Systems General: Reports: No Symptoms HEENT: Reports: no symptoms Pulmonary: Reports: no symptoms Cardiovascular: Reports: No Symptoms Gastrointestinal: Reports: No symptoms Genitourinary: Reports: no symptoms Musculoskeletal: Reports: back pain (chronic) Skin: Reports: no symptoms Neurological: Reports: No Symptoms Psychiatric: Reports: no symptoms - Patient Data Vitals - most recent: Last Vital Signs Temp 99.6 F 01/09/17 16:00 Pulse 67 01/09/17 16:00 Resp 19 01/09/17 12:00 BP 143/67 H 01/09/17 16:00 Pulse Ox 96 01/09/17 12:00 Weight - most recent: 102 lb 15.999 oz I&O - last 24 hours: Intake & Output 01/09/17 01/09/17 01/09/17 06:59 14:59 22:59 Intake Total 50 380 Balance 50 380 Lab Results last 24 hrs: Laboratory Results - last 24 hr 01/07/17 01/07/17 01/09/17 Range/Units 15:20 15:20 06:50 WBC 7.3 8.4 (3.9-11.3) x10-3 ul RBC 3.04 L 3.87 (4.10-5.30) x10-6 ul Hgb 9.2 L 11.4 L (12.0-16.0) gm/dL Hct 27.2 L 35.1 (37.0-47.0) % MCV 90 90.7 (83-99) fL MCH 30.2 29.5 (28.0-32.0) pg MCHC 33.7 32.5 (32.0-36.0) g/dL RDW 13.8 15.4 H (10.9-15.7) Plt Count 273 357 H (150-400) x10-3 ul Neut % (Auto) 67.0 (45.0-80.0) % Lymph % (Auto) 20.6 (10.0-50.0) % [place] % (Auto) 11.2 (2.0-14.0) % Eos % (Auto) 1.0 (0.0-5.0) % Baso % (Auto) 0.2 (0.0-2.0) % Neut # (Auto) 5.61 (1.40-7.00) K/uL Lymph # (Auto) 1.73 (0.50-3.50) K/uL [place] # (Auto) 0.94 (0.00-1.00) K/uL Eos # (Auto) 0.08 (0.00-0.50) K/uL Baso # (Auto) 0.02 (0.00-0.20) K/uL Neutrophils % (Manual) 58 % Band Neuts % (Manual) 4 % Lymphocytes % (Manual) 24 % Monocytes % (Manual) 11 % Eosinophils % (Manual) 1 % Basophils % (Manual) 1 % Metamyelocytes % (Man) 0.5 % Myelocytes % (Man) 0.5 % Neutrophils # (Manual) 4.23 (1.80-7.00) x10-3 ul Band Neutrophils # Man 0.29 (0.00-0.70) x10-3 ul Lymphocytes # (Manual) 1.75 (1.00-4.80) x10-3 ul Monocytes # (Manual) 0.80 (0.00-0.80) x10-3 ul Eosinophils # (Manual) 0.07 (0.00-0.45) x10-3 ul Basophils # (Manual) 0.07 (0.00-0.20) x10-3 ul RBC/WBC/PLT Morphology Normal Platelet Estimate Adequate Smear Path Review Path rpt Absolute Retic 0.0330 (0.0200-0.1000) Percent Retic 1.1 (0.3-2.2) % Sodium (136-145) mmol/L Potassium (3.5-5.1) mmol/L Chloride (98-107) mmol/L Carbon Dioxide (21.0-32.0) mmol/L BUN (7-18) mg/dL Creatinine (0.51-1.17) mg/dL Est Cr Clr Drug Dosing mL/min Estimated GFR (MDRD) mL/min Glucose (74-106) mg/dL Calcium (8.5-10.1) mg/dL Magnesium (1.8-2.4) mg/dL Iron 36 L (40-150) ug/dL TIBC 287 (261-478) ug/dL Transferrin 205 (192-382) mg/dL Transferrin % Sat 12.5 L (20.0-50.0) % Ferritin 151 (11-307) ng/mL Total Bilirubin (0.2-1.0) mg/dL AST (15-37) U/L ALT (12-78) U/L Alkaline Phosphatase (46-116) IU/L C-Reactive Protein (<=0.9) mg/dL Total Protein (6.4-8.2) g/dL Albumin (3.4-5.0) g/dL 01/09/17 Range/Units 06:50 WBC (3.9-11.3) x10-3 ul RBC (4.10-5.30) x10-6 ul Hgb (12.0-16.0) gm/dL Hct (37.0-47.0) % MCV (83-99) fL MCH (28.0-32.0) pg MCHC (32.0-36.0) g/dL RDW (10.9-15.7) Plt Count (150-400) x10-3 ul Neut % (Auto) (45.0-80.0) % Lymph % (Auto) (10.0-50.0) % [place] % (Auto) (2.0-14.0) % Eos % (Auto) (0.0-5.0) % Baso % (Auto) (0.0-2.0) % Neut # (Auto) (1.40-7.00) K/uL Lymph # (Auto) (0.50-3.50) K/uL [place] # (Auto) (0.00-1.00) K/uL Eos # (Auto) (0.00-0.50) K/uL Baso # (Auto) (0.00-0.20) K/uL Neutrophils % (Manual) % Band Neuts % (Manual) % Lymphocytes % (Manual) % Monocytes % (Manual) % Eosinophils % (Manual) % Basophils % (Manual) % Metamyelocytes % (Man) % Myelocytes % (Man) % Neutrophils # (Manual) (1.80-7.00) x10-3 ul Band Neutrophils # Man (0.00-0.70) x10-3 ul Lymphocytes # (Manual) (1.00-4.80) x10-3 ul Monocytes # (Manual) (0.00-0.80) x10-3 ul Eosinophils # (Manual) (0.00-0.45) x10-3 ul Basophils # (Manual) (0.00-0.20) x10-3 ul RBC/WBC/PLT Morphology Platelet Estimate Smear Path Review Absolute Retic (0.0200-0.1000) Percent Retic (0.3-2.2) % Sodium 139 (136-145) mmol/L Potassium 3.7 (3.5-5.1) mmol/L Chloride 106 (98-107) mmol/L Carbon Dioxide 22.8 (21.0-32.0) mmol/L BUN 5 L (7-18) mg/dL Creatinine 0.56 (0.51-1.17) mg/dL Est Cr Clr Drug Dosing 56.14 mL/min Estimated GFR (MDRD) > 60 mL/min Glucose 108 H (74-106) mg/dL Calcium 8.7 (8.5-10.1) mg/dL Magnesium 1.5 L (1.8-2.4) mg/dL Iron (40-150) ug/dL TIBC (261-478) ug/dL Transferrin (192-382) mg/dL Transferrin % Sat (20.0-50.0) % Ferritin (11-307) ng/mL Total Bilirubin 0.2 (0.2-1.0) mg/dL AST 25 (15-37) U/L ALT 20 (12-78) U/L Alkaline Phosphatase 91 (46-116) IU/L C-Reactive Protein 7.6 H (<=0.9) mg/dL Total Protein 6.2 L (6.4-8.2) g/dL Albumin 2.3 L (3.4-5.0) g/dL [place] Results last 24 hrs: Microbiology 01/09/17 14:40 Stool Occult Blood (ANGEL) - Final Stool / Feces - Stool, Formed NEGATIVE OCCULT BLOOD 01/09/17 08:10 Stool Occult Blood (ANGEL) - Final Stool / Feces - Stool, Formed NEGATIVE OCCULT BLOOD Med Orders - Current: Current Medications Hydrocodone Bitart/Acetaminophen ([place] 325-10 Mg) 1 tab PO QID [facility] Last Admin: 01/09/17 15:57 Dose: 1 tab Hydrocodone Bitart/Acetaminophen ([place] 325-10 Mg) 1 tab PO DAILY PRN PRN Reason: Pain Last Admin: 01/08/17 14:33 Dose: 1 tab Albuterol (Ventolin Hfa) 0 gm INH Q6HR [facility] Last Admin: 01/09/17 15:57 Dose: 2 inhalation Albuterol/Ipratropium (Duoneb 3.0-0.5 Mg/3 Ml) 3 ml INH Q4HR PRN PRN Reason: Shortness of Breath Amitriptyline HCl (Elavil) 50 mg PO BEDTIME [facility] Last Admin: 01/08/17 19:24 Dose: 50 mg Calcium Carbonate/Glycine (Tums) 1,000 mg PO Q6HR PRN PRN Reason: Indigestion Carisoprodol (Soma) 350 mg PO TID [facility] Last Admin: 01/09/17 17:46 Dose: 350 mg Carvedilol (Coreg) 3.125 mg PO Q12HR [facility] Clonazepam (Klonopin) 0.5 mg PO BEDTIME [facility] Last Admin: 01/08/17 19:24 Dose: 0.5 mg Folic Acid (Folic Acid) 1 mg PO DAILY [facility] Last Admin: 01/09/17 07:44 Dose: 1 mg Furosemide (Lasix) 40 mg PO DAILY [facility] Last Admin: 01/09/17 07:43 Dose: 40 mg Gabapentin (Neurontin) 200 mg PO TID [facility] Last Admin: 01/09/17 17:46 Dose: 200 mg Ciprofloxacin/Dextrose 400 mg/ (Premix) 200 mls @ 200 mls/hr IV Q12HR [facility] Last Admin: 01/09/17 07:42 Dose: 200 mls/hr Isosorbide Mononitrate (Imdur) 30 mg PO QPM [facility] Last Admin: 01/09/17 17:46 Dose: 30 mg Lactobacillus Rhamnosus (Culturelle) 1 cap PO BID [facility] Last Admin: 01/09/17 17:46 Dose: 1 cap Levothyroxine Sodium (Levothyroxine) 75 mcg PO ACBREAKFAST [facility] Last Admin: 01/09/17 07:43 Dose: 75 mcg Lidocaine (Lidoderm 5%) 700 mg TOP DAILY [facility] Last Admin: 01/09/17 07:41 Dose: 700 mg Miscellaneous Information (Remove Patch) 1 ea TRDERM BEDTIME [facility] Last Admin: 01/08/17 19:35 Dose: 1 ea Miscellaneous Information (Remove Patch) 1 ea TRDERM DAILY@1600 [facility] Last Admin: 01/09/17 15:57 Dose: Not Given Mometasone Furoate/Formoterol Fumar (Dulera 200-5 Mcg) 2 puff IH BID [facility] Last Admin: 01/09/17 17:46 Dose: 2 puff Nicotine (Habitrol) 21 mg TRDERM DAILY@1600 [facility] Last Admin: 01/09/17 15:58 Dose: Not Given Nitroglycerin (Nitrostat) 0.4 mg SL ASDIRECTED PRN PRN Reason: Chest Pain Ondansetron HCl (Zofran) 4 mg IVPUSH Q6H PRN PRN Reason: Nausea/Vomiting Pantoprazole Sodium (Protonix Iv) 40 mg IVPUSH BEDTIME [facility] Last Admin: 01/08/17 19:23 Dose: 40 mg Potassium Chloride (Klor-Con M20) 20 meq PO BID [facility] Last Admin: 01/09/17 17:46 Dose: 20 meq Sodium Chloride (Saline Flush) 10 ml FLUSH ASDIRECTED PRN PRN Reason: Keep Vein Open Last Admin: 01/09/17 07:44 Dose: 10 ml Sodium Chloride (Saline Flush) 10 ml FLUSH Q12HR [facility] Sucralfate (Carafate) 1 gm PO QIDACANDBED [facility] Last Admin: 01/09/17 17:46 Dose: 1 gm Tiotropium [place] (Spiriva Handihaler) 18 mcg INH QAM@0700 [facility] Last Admin: 01/09/17 07:42 Dose: 1 inh Discontinued Medications Amlodipine Besylate (Norvasc) 5 mg PO QAM [facility] Carvedilol (Coreg) 12.5 mg PO BIDM [facility] Last Admin: 01/08/17 07:41 Dose: 12.5 mg Carvedilol (Coreg) 6.25 mg PO Q12HR [facility] Last Admin: 01/09/17 07:43 Dose: 6.25 mg Furosemide (Lasix) 40 mg IVPUSH ONETIME ONE Stop: 01/07/17 19:01 Last Admin: 01/07/17 19:29 Dose: 40 mg Furosemide (Lasix) 40 mg IVPUSH ONETIME ONE Stop: 01/07/17 22:01 Last Admin: 01/07/17 23:15 Dose: Not Given Pantoprazole Sodium 80 mg/ (Sodium Chloride) 100 mls @ 10 mls/hr IV .Continuous [facility] Last Admin: 01/08/17 04:14 Dose: 10 mls/hr Sodium Chloride (Normal Saline) 1,000 mls @ 50 mls/hr IV ASDIRECTED [facility] Last Admin: 01/07/17 15:46 Dose: 50 mls/hr Miscellaneous Information (Remove Patch) 1 ea TRDERM DAILY [facility] Last Admin: 01/08/17 07:45 Dose: 1 ea Nicotine (Habitrol) 21 mg TRDERM DAILY [facility] Last Admin: 01/08/17 07:45 Dose: Not Given Potassium Chloride (Klor-Con M20) 20 meq PO ONETIME ONE Stop: 01/08/17 10:31 Last Admin: 01/08/17 11:03 Dose: 20 meq Potassium Chloride (Klor-Con M20) 20 meq PO ONETIME ONE Stop: 01/08/17 14:01 Last Admin: 01/08/17 14:32 Dose: 20 meq Potassium Chloride (Klor-Con M20) 20 meq PO ONETIME ONE Stop: 01/08/17 16:01 Last Admin: 01/08/17 16:36 Dose: 20 meq - Exam General: alert, cooperative, no acute distress HEENT: Pupils reactive, Mucous membr. moist/pink Neck: trachea midline, no JVD Lungs: Clear to auscultation, Normal respiratory effort Cardiovascular: Regular Rate, Regular Rhythm Abdomen: bowel sounds present, soft, no tenderness, no distension (Female) Exam: Deferred Back Exam: normal inspection, paraspinal tenderness, vertebral tenderness Extremities: no edema Skin: warm, dry, intact Neurological: no new focal deficit Psy/Mental Status: alert, normal affect, normal mood - Problem List & Annotations (1) Anemia SNOMED Code(s): 428203879 Code(s): D64.9 - ANEMIA, UNSPECIFIED Status: Acute Priority: High Current Visit: Yes Qualifiers: Anemia type: folate deficiency Folate deficiency anemia type: unspecified folate deficiency Qualified Code(s): D52.9 - Folate deficiency anemia, unspecified (2) GI bleed SNOMED Code(s): 94894494 Code(s): K92.2 - GASTROINTESTINAL HEMORRHAGE, UNSPECIFIED Status: Acute Priority: High Current Visit: Yes Qualifiers: GI bleed type/associated pathology: unspecified gastrointestinal hemorrhage type Qualified Code(s): K92.2 - Gastrointestinal hemorrhage, unspecified (3) Abdominal pain of unknown cause SNOMED Code(s): 706617776 Code(s): R10.9 - UNSPECIFIED ABDOMINAL PAIN Status: Acute Priority: High Current Visit: No (4) Anxiety SNOMED Code(s): 38782965 Code(s): F41.9 - ANXIETY DISORDER, UNSPECIFIED Status: Acute Current Visit: No (5) Generalized weakness SNOMED Code(s): 78563151 Code(s): R53.1 - WEAKNESS Status: Acute Current Visit: No (6) UTI (urinary tract infection) SNOMED Code(s): 46196384 Code(s): N39.0 - URINARY TRACT INFECTION, SITE NOT SPECIFIED Status: Acute Priority: Medium Current Visit: No Qualifiers: Urinary tract infection type: site unspecified Hematuria presence: without hematuria Qualified Code(s): N39.0 - Urinary tract infection, site not specified (7) Hypokalemia SNOMED Code(s): 99474650 Code(s): E87.6 - HYPOKALEMIA Status: Acute Priority: High Current Visit : Yes - Problem List Review Problem List Initiated/Reviewed/Updated: Yes - My Orders Last 24 Hours: My Active Orders 01/08/17 20:00 Pantoprazole [ProTONIX IV] 40 mg IVPUSH BEDTIME 01/09/17 17:53 Discontinue Telemetry Monitoring [Cardiac Monitoring Discontinue] [RC] Click To Edit 01/09/17 20:00 Carvedilol [Coreg] 3.125 mg PO Q12HR Sodium Chloride 0.9% [Saline Flush] 10 ml FLUSH Q12HR - Plan Plan:: 01/07/2017 Patient is admitted to inpatient started on IV PRotonix and will transfuse two units of PRBCS. Discussed with Dr Mann in regards to the plan of care. Patient is wanting hospitalization in [place] and [facility], daughter (nAn) called. Monitor hgb. Occult stools ordered. Iron panel and further anemia workup ordered. Continue IV Cipro for UTI Tracy Aguilar CNP 01/09/17 Johnathan Mccollum MD Feeling a little better today. Hemoglobin stabilized. Potassium improved. D/C telemetry.
[2017-01-09] MEDS: Amitriptyline 25 MG Tab PO SCH (21:07)
[2017-01-09] MEDS: Pantoprazole 40 MG Vial IVPUSH SCH (21:07)
[2017-01-09] MEDS: Carvedilol 3.125 MG Tab PO SCH (21:07)
[2017-01-09] MEDS: Sodium Chloride 0.9% 10 ML Syringe FLUSH SCH (21:08)
[2017-01-09] MEDS: REMOVE LIDOCAINE TRDERM SCH (21:08)
[2017-01-09] MEDS: ClonazePAM 0.5 MG Tab PO SCH (21:08)
[2017-01-10] MEDS: Albuterol 8 GM Inhaler INH SCH ×2 (04:01→11:04)
[2017-01-10 07:51] LABS: CHLORIDE,CL 105 mmol/L (98-107); SODIUM,NA 138 mmol/L (136-145)
[2017-01-10] MEDS: Sucralfate 1 GM Tab PO SCH ×2 (07:51→11:04)
[2017-01-10] MEDS: Tiotropium Inhaler 18 MCG Inhalation Powder Cap Kit of 5 INH SCH (07:51)
[2017-01-10] MEDS: Levothyroxine 75 MCG Tab PO SCH (07:51)
[2017-01-10] MEDS: Ciprofloxacin in D5W 400 MG in Premix Bag 1 BAG IV SCH ×2 (07:51)
[2017-01-10] MEDS: Lactobacillus Rhamnosus GG (Probiotic) Cap PO SCH (07:52)
[2017-01-10] MEDS: Carvedilol 3.125 MG Tab PO SCH (07:52)
[2017-01-10] MEDS: Folic Acid 1 MG Tab PO SCH (07:52)
[2017-01-10] MEDS: Formoterol/Mometasone 200-5 MCG 8.8 GM Inhaler IH SCH (07:52)
[2017-01-10] MEDS: Furosemide 40 MG Tab PO SCH (07:53)
[2017-01-10] MEDS: Gabapentin 100 MG Cap PO SCH ×2 (07:53→11:04)
[2017-01-10] MEDS: Potassium Chloride 20 MEQ Tab.ER PO SCH (07:53)
[2017-01-10] MEDS: Acetaminophen/HYDROcodone 325-10 MG Tab PO SCH ×2 (07:53→11:04)
[2017-01-10] MEDS: Lidocaine 5% 700 MG Patch TOP SCH (07:53)
[2017-01-10] MEDS: Sodium Chloride 0.9% 10 ML Syringe FLUSH SCH (07:54)
[2017-01-10] MEDS ORDERED: Potassium Chloride 20 MEQ Tab.ER PO ONE (12:01)
[2017-01-10 13:09] VITALS: BP 117/54
--- NOTE | 2017-01-10 13:57 | PCM.PN ---
- General Info Date of Service: 01/10/17 Admission Dx/Problem (Free Text): Admission Diagnosis/Problem Admission Diagnosis/Problem Bleeding Functional Status: Reports: pain controlled, tolerating diet, ambulating - Review of Systems General: Reports: No Symptoms HEENT: Reports: no symptoms Pulmonary: Reports: no symptoms Cardiovascular: Reports: No Symptoms Gastrointestinal: Reports: No symptoms Genitourinary: Reports: no symptoms Musculoskeletal: Reports: no symptoms Skin: Reports: no symptoms Neurological: Reports: No Symptoms Psychiatric: Reports: no symptoms - Patient Data Vitals - most recent: Last Vital Signs Temp 96 F 01/10/17 12:00 Pulse 72 01/10/17 12:00 Resp 16 01/10/17 12:00 BP 117/54 L 01/10/17 12:00 Pulse Ox 95 01/10/17 12:00 Weight - most recent: 102 lb 15.999 oz I&O - last 24 hours: Intake & Output 01/09/17 01/10/17 01/10/17 22:59 06:59 14:59 Intake Total 240 400 Output Total 500 800 600 Balance -260 -400 -600 Lab Results last 24 hrs: Laboratory Results - last 24 hr 01/07/17 01/10/17 01/10/17 Range/Units 15:20 07:00 07:00 WBC 7.3 8.4 (3.9-11.3) x10-3 ul RBC 3.04 L 3.99 (4.10-5.30) x10-6 ul Hgb 9.2 L 11.8 (12.0-16.0) gm/dL Hct 27.2 L 36.4 (37.0-47.0) % MCV 90 91.2 (83-99) fL MCH 30.2 29.6 (28.0-32.0) pg MCHC 33.7 32.4 (32.0-36.0) g/dL RDW 13.8 15.0 H (10.9-15.7) Plt Count 273 447 H D (150-400) x10-3 ul Neut % (Auto) 67.4 (45.0-80.0) % Lymph % (Auto) 18.7 (10.0-50.0) % [place] % (Auto) 12.7 (2.0-14.0) % Eos % (Auto) 1.1 (0.0-5.0) % Baso % (Auto) 0.1 (0.0-2.0) % Neut # (Auto) 5.69 (1.40-7.00) K/uL Lymph # (Auto) 1.58 (0.50-3.50) K/uL [place] # (Auto) 1.07 H (0.00-1.00) K/uL Eos # (Auto) 0.09 (0.00-0.50) K/uL Baso # (Auto) 0.01 (0.00-0.20) K/uL Neutrophils % (Manual) 58 % Band Neuts % (Manual) 4 % Lymphocytes % (Manual) 24 % Monocytes % (Manual) 11 % Eosinophils % (Manual) 1 % Basophils % (Manual) 1 % Metamyelocytes % (Man) 0.5 % Myelocytes % (Man) 0.5 % Neutrophils # (Manual) 4.23 (1.80-7.00) x10-3 ul Band Neutrophils # Man 0.29 (0.00-0.70) x10-3 ul Lymphocytes # (Manual) 1.75 (1.00-4.80) x10-3 ul Monocytes # (Manual) 0.80 (0.00-0.80) x10-3 ul Eosinophils # (Manual) 0.07 (0.00-0.45) x10-3 ul Basophils # (Manual) 0.07 (0.00-0.20) x10-3 ul RBC/WBC/PLT Morphology Normal Platelet Estimate Adequate Smear Path Review Path rpt Absolute Retic 0.0330 (0.0200-0.1000) Percent Retic 1.1 (0.3-2.2) % Sodium 138 (136-145) mmol/L Potassium 3.4 L (3.5-5.1) mmol/L Chloride 105 (98-107) mmol/L Carbon Dioxide 25.8 (21.0-32.0) mmol/L BUN 5 L (7-18) mg/dL Creatinine 0.52 (0.51-1.17) mg/dL Est Cr Clr Drug Dosing 60.46 mL/min Estimated GFR (MDRD) > 60 mL/min Glucose 106 (74-106) mg/dL Calcium 9.0 (8.5-10.1) mg/dL Total Bilirubin 0.3 (0.2-1.0) mg/dL AST 21 (15-37) U/L ALT 20 (12-78) U/L Alkaline Phosphatase 92 (46-116) IU/L C-Reactive Protein 9.8 H (<=0.9) mg/dL Total Protein 6.3 L (6.4-8.2) g/dL Albumin 2.4 L (3.4-5.0) g/dL [place] Results last 24 hrs: Microbiology 01/09/17 14:40 Stool Occult Blood (ANGEL) - Final Stool / Feces - Stool, Formed NEGATIVE OCCULT BLOOD Med Orders - Current: Current Medications Hydrocodone Bitart/Acetaminophen ([place] 325-10 Mg) 1 tab PO QID [facility] Last Admin: 01/10/17 11:04 Dose: 1 tab Hydrocodone Bitart/Acetaminophen ([place] 325-10 Mg) 1 tab PO DAILY PRN PRN Reason: Pain Last Admin: 01/08/17 14:33 Dose: 1 tab Albuterol (Ventolin Hfa) 0 gm INH Q6HR [facility] Last Admin: 01/10/17 11:04 Dose: 2 inhalation Albuterol/Ipratropium (Duoneb 3.0-0.5 Mg/3 Ml) 3 ml INH Q4HR PRN PRN Reason: Shortness of Breath Amitriptyline HCl (Elavil) 50 mg PO BEDTIME [facility] Last Admin: 01/09/17 21:07 Dose: 50 mg Calcium Carbonate/Glycine (Tums) 1,000 mg PO Q6HR PRN PRN Reason: Indigestion Carisoprodol (Soma) 350 mg PO TID [facility] Last Admin: 01/10/17 11:04 Dose: 350 mg Carvedilol (Coreg) 3.125 mg PO Q12HR [facility] Last Admin: 01/10/17 07:52 Dose: 3.125 mg Clonazepam (Klonopin) 0.5 mg PO BEDTIME [facility] Last Admin: 01/09/17 21:08 Dose: 0.5 mg Folic Acid (Folic Acid) 1 mg PO DAILY [facility] Last Admin: 01/10/17 07:52 Dose: 1 mg Furosemide (Lasix) 40 mg PO DAILY [facility] Last Admin: 01/10/17 07:53 Dose: 40 mg Gabapentin (Neurontin) 200 mg PO TID [facility] Last Admin: 01/10/17 11:04 Dose: 200 mg Ciprofloxacin/Dextrose 400 mg/ (Premix) 200 mls @ 200 mls/hr IV Q12HR [facility] Last Admin: 01/10/17 07:51 Dose: 200 mls/hr Isosorbide Mononitrate (Imdur) 30 mg PO QPM [facility] Last Admin: 01/09/17 17:46 Dose: 30 mg Lactobacillus Rhamnosus (Culturelle) 1 cap PO BID [facility] Last Admin: 01/10/17 07:52 Dose: 1 cap Levothyroxine Sodium (Levothyroxine) 75 mcg PO ACBREAKFAST [facility] Last Admin: 01/10/17 07:51 Dose: 75 mcg Lidocaine (Lidoderm 5%) 700 mg TOP DAILY [facility] Last Admin: 01/10/17 07:53 Dose: 700 mg Miscellaneous Information (Remove Patch) 1 ea TRDERM BEDTIME [facility] Last Admin: 01/09/17 21:08 Dose: 1 ea Miscellaneous Information (Remove Patch) 1 ea TRDERM DAILY@1600 [facility] Last Admin: 01/09/17 15:57 Dose: Not Given Mometasone Furoate/Formoterol Fumar (Dulera 200-5 Mcg) 2 puff IH BID [facility] Last Admin: 01/10/17 07:52 Dose: 2 puff Nicotine (Habitrol) 21 mg TRDERM DAILY@1600 [facility] Last Admin: 01/09/17 15:58 Dose: Not Given Nitroglycerin (Nitrostat) 0.4 mg SL ASDIRECTED PRN PRN Reason: Chest Pain Ondansetron HCl (Zofran) 4 mg IVPUSH Q6H PRN PRN Reason: Nausea/Vomiting Pantoprazole Sodium (Protonix Iv) 40 mg IVPUSH BEDTIME [facility] Last Admin: 01/09/17 21:07 Dose: 40 mg Potassium Chloride (Klor-Con M20) 20 meq PO BID [facility] Last Admin: 01/10/17 07:53 Dose: 20 meq Sodium Chloride (Saline Flush) 10 ml FLUSH Q12HR [facility] Last Admin: 01/10/17 07:54 Dose: 10 ml Sucralfate (Carafate) 1 gm PO QIDACANDBED [facility] Last Admin: 01/10/17 11:04 Dose: 1 gm Tiotropium [place] (Spiriva Handihaler) 18 mcg INH QAM@0700 [facility] Last Admin: 01/10/17 07:51 Dose: 1 inh Discontinued Medications Amlodipine Besylate (Norvasc) 5 mg PO QAM [facility] Carvedilol (Coreg) 12.5 mg PO BIDM [facility] Last Admin: 01/08/17 07:41 Dose: 12.5 mg Carvedilol (Coreg) 6.25 mg PO Q12HR [facility] Last Admin: 01/09/17 07:43 Dose: 6.25 mg Furosemide (Lasix) 40 mg IVPUSH ONETIME ONE Stop: 01/07/17 19:01 Last Admin: 01/07/17 19:29 Dose: 40 mg Furosemide (Lasix) 40 mg IVPUSH ONETIME ONE Stop: 01/07/17 22:01 Last Admin: 01/07/17 23:15 Dose: Not Given Pantoprazole Sodium 80 mg/ (Sodium Chloride) 100 mls @ 10 mls/hr IV .Continuous [facility] Last Admin: 01/08/17 04:14 Dose: 10 mls/hr Sodium Chloride (Normal Saline) 1,000 mls @ 50 mls/hr IV ASDIRECTED [facility] Last Admin: 01/07/17 15:46 Dose: 50 mls/hr Miscellaneous Information (Remove Patch) 1 ea TRDERM DAILY [facility] Last Admin: 01/08/17 07:45 Dose: 1 ea Nicotine (Habitrol) 21 mg TRDERM DAILY [facility] Last Admin: 01/08/17 07:45 Dose: Not Given Potassium Chloride (Klor-Con M20) 20 meq PO ONETIME ONE Stop: 01/08/17 10:31 Last Admin: 01/08/17 11:03 Dose: 20 meq Potassium Chloride (Klor-Con M20) 20 meq PO ONETIME ONE Stop: 01/08/17 14:01 Last Admin: 01/08/17 14:32 Dose: 20 meq Potassium Chloride (Klor-Con M20) 20 meq PO ONETIME ONE Stop: 01/08/17 16:01 Last Admin: 01/08/17 16:36 Dose: 20 meq Potassium Chloride (Klor-Con M20) 20 meq PO ONETIME ONE Stop: 01/10/17 12:02 Last Admin: 01/10/17 12:10 Dose: 20 meq Sodium Chloride (Saline Flush) 10 ml FLUSH ASDIRECTED PRN PRN Reason: Keep Vein Open Last Admin: 01/09/17 07:44 Dose: 10 ml - Exam Quality Assessment: supplemental oxygen General: alert, cooperative, no acute distress HEENT: Pupils equal, Pupils reactive, EOMI, Mucous membr. moist/pink Neck: supple Lungs: Clear to auscultation, Normal respiratory effort Cardiovascular: Regular Rate, Regular Rhythm Abdomen: bowel sounds present, soft, no tenderness, no distension (Female) Exam: Deferred Back Exam: normal inspection Extremities: no edema Skin: warm, dry, intact Neurological: no new focal deficit Psy/Mental Status: alert, normal affect, normal mood - Problem List & Annotations (1) Anemia SNOMED Code(s): 952943010 Code(s): D64.9 - ANEMIA, UNSPECIFIED Status: Acute Priority: High Current Visit: Yes Qualifiers: Anemia type: folate deficiency Folate deficiency anemia type: unspecified folate deficiency Qualified Code(s): D52.9 - Folate deficiency anemia, unspecified (2) GI bleed SNOMED Code(s): 04834642 Code(s): K92.2 - GASTROINTESTINAL HEMORRHAGE, UNSPECIFIED Status: Acute Priority: High Current Visit: Yes Qualifiers: GI bleed type/associated pathology: unspecified gastrointestinal hemorrhage type Qualified Code(s): K92.2 - Gastrointestinal hemorrhage, unspecified (3) Abdominal pain of unknown cause SNOMED Code(s): 783941913 Code(s): R10.9 - UNSPECIFIED ABDOMINAL PAIN Status: Acute Priority: High Current Visit: No (4) Anxiety SNOMED Code(s): 37379655 Code(s): F41.9 - ANXIETY DISORDER, UNSPECIFIED Status: Acute Current Visit: No (5) Generalized weakness SNOMED Code(s): 43600109 Code(s): R53.1 - WEAKNESS Status: Acute Current Visit: No (6) UTI (urinary tract infection) SNOMED Code(s): 24086515 Code(s): N39.0 - URINARY TRACT INFECTION, SITE NOT SPECIFIED Status: Acute Priority: Medium Current Visit: No Qualifiers: Urinary tract infection type: site unspecified Hematuria presence: without hematuria Qualified Code(s): N39.0 - Urinary tract infection, site not specified (7) Hypokalemia SNOMED Code(s): 72416222 Code(s): E87.6 - HYPOKALEMIA Status: Acute Priority: High Current Visit : Yes - Problem List Review Problem List Initiated/Reviewed/Updated: Yes - My Orders Last 24 Hours: My Active Orders 01/09/17 17:53 Discontinue Telemetry Monitoring [Cardiac Monitoring Discontinue] [RC] Click To Edit 01/09/17 20:00 Carvedilol [Coreg] 3.125 mg PO Q12HR Sodium Chloride 0.9% [Saline Flush] 10 ml FLUSH Q12HR 01/10/17 13:50 Ready for Discharge [RC] PER UNIT ROUTINE 01/10/17 13:51 Discontinue Saline Lock [Peripheral IV Discontinue] [OM.PC] Routine - Plan Plan:: 01/07/2017 Patient is admitted to inpatient started on IV PRotonix and will transfuse two units of PRBCS. Discussed with Dr Mann in regards to the plan of care. Patient is wanting hospitalization in [place] and [facility], daughter (Ann) called. Monitor hgb. Occult stools ordered. Iron panel and further anemia workup ordered. Continue IV Cipro for UTI Tracy Aguilar,[employer]OS[employer] PROJECT MANAGER 01/09/17 Johnathan Mccollum MD Feeling a little better today. Hemoglobin stabilized. Potassium improved. D/C telemetry. 01/10/17 Johnathan Mccollum MD Feels okay. No abdomenal pain. H/H stable. She does not want EGD/colonoscopy at this time. Stable for discharge to [place].
--- NOTE | 2017-01-10 14:02 | PCM.DCSUM1 ---
Discharge Summary - Discharge Data Discharge Date: 01/10/17 Discharge Disposition: DC/Tfer to SNF 03 Condition: Fair - Discharge Diagnosis/Problem(s) (1) Anemia SNOMED Code(s): 918522803 ICD Code: D64.9 - ANEMIA, UNSPECIFIED Status: Acute Priority: High Current Visit: Yes Qualifiers: Anemia type: folate deficiency Folate deficiency anemia type: unspecified folate deficiency Qualified Code(s): D52.9 - Folate deficiency anemia, unspecified (2) GI bleed SNOMED Code(s): 64482953 ICD Code: K92.2 - GASTROINTESTINAL HEMORRHAGE, UNSPECIFIED Status: Acute Priority: High Current Visit: Yes Qualifiers: GI bleed type/associated pathology: unspecified gastrointestinal hemorrhage type Qualified Code(s): K92.2 - Gastrointestinal hemorrhage, unspecified (3) Abdominal pain of unknown cause SNOMED Code(s): 166404079 ICD Code: R10.9 - UNSPECIFIED ABDOMINAL PAIN Status: Acute Priority: High Current Visit: No (4) Anxiety SNOMED Code(s): 05470537 ICD Code: F41.9 - ANXIETY DISORDER, UNSPECIFIED Status: Acute Current Visit: No (5) Generalized weakness SNOMED Code(s): 07725721 ICD Code: R53.1 - WEAKNESS Status: Acute Current Visit: No (6) UTI (urinary tract infection) SNOMED Code(s): 12653738 ICD Code: N39.0 - URINARY TRACT INFECTION, SITE NOT SPECIFIED Status: Acute Priority: Medium Current Visit: No Qualifiers: Urinary tract infection type: site unspecified Hematuria presence: without hematuria Qualified Code(s): N39.0 - Urinary tract infection, site not specified (7) Hypokalemia SNOMED Code(s): 53747321 ICD Code: E87.6 - HYPOKALEMIA Status: Acute Priority: High Current Visit: Yes - Patient Summary/Data Consults: Consultations 01/07/17 14:36 Consult to Case Management [CONS] Routine PT Evaluation and Treatment [CONS] Routine - Patient Instructions Diet: Regular Diet as Tolerated Other/Special Instructions: Do CBC,CMP,magnesium next week on lab day. O2 2-4 LPM per NC prn - Discharge Plan Prescriptions/Med Rec: Folic Acid 1 mg PO DAILY #30 tablet Omeprazole 20 mg PO DAILY #30 cap.cr Potassium Chloride 20 meq PO TID #90 tablet.er Home Medications: Home Meds Carisoprodol [Soma] 350 mg PO TID 02/26/15 [History] Fluticasone/Salmeterol [Advair 250-50] 1 puff INH BID 02/26/15 [History] Gemfibrozil 600 mg PO BID 02/26/15 [History] Hydrocodone/Acetaminophen [Lortab 10-325 mg Tablet] 1 each PO DAILY PRN [History] Isosorbide Mononitrate [Imdur] 30 mg PO QPM 02/26/15 [History] Levothyroxine 75 mcg PO ACBREAKFAST 02/26/15 [History] Sucralfate [Carafate] 1 gm PO QID 02/26/15 [History] Tiotropium [Spiriva HandiHaler] 18 mcg INH QAM@0700 02/26/15 [History] amLODIPine [Norvasc] 5 mg PO QAM 02/26/15 [History] Albuterol Sulfate [Albuterol Sulfate HFA] 2 puff INH Q6HR 04/18/15 [History] Amitriptyline [Elavil] 50 mg PO BEDTIME 04/18/15 [History] Furosemide [Lasix] 40 mg PO DAILY 04/18/15 [History] Hydrocodone/Acetaminophen [[place] 10-325] 1 tab PO QID 04/18/15 [History] cycloSPORINE [Restasis] 1 drop EYEBOTH BEDTIME 04/18/15 [History] Acetaminophen 650 mg PO Q12HR PRN 01/05/17 [History] Acetaminophen [Pain Relief] 650 mg PO 2000 01/05/17 [History] Albuterol/Ipratropium [DuoNeb 3.0-0.5 MG/3 ML] 1 appful INH Q4HR PRN 01/05/17 [ History] Calcium Carbonate [Tums] 1,000 mg PO Q6HR PRN 01/05/17 [History] Carvedilol [Coreg] 12.5 mg PO BIDM 01/05/17 [History] Ciprofloxacin [Ciprofloxacin HCl] 500 mg PO BID #8 tablet 01/05/17 [Rx] DULoxetine HCl [Cymbalta] 30 mg PO DAILY 01/05/17 [History] Ferrous Sulfate 325 mg PO DAILY 01/05/17 [History] Gabapentin [Neurontin] 200 mg PO TID 01/05/17 [History] Lidocaine 1 each TP DAILY 01/05/17 [History] Nitroglycerin 0.4 mg SL ASDIRECTED PRN 01/05/17 [History] buPROPion [Wellbutrin XL] 300 mg PO DAILY 01/05/17 [History] clonazePAM [Klonopin] 0.5 mg PO BEDTIME 01/05/17 [History] Non-Formulary Medication [NF Drug] 250 mg PO BID 01/07/17 [History] Folic Acid 1 mg PO DAILY #30 tablet 01/10/17 [Rx] Omeprazole 20 mg PO DAILY #30 cap.cr 01/10/17 [Rx] Potassium Chloride 20 meq PO TID #90 tablet.er 01/10/17 [Rx] Patient Handouts: Anemia, Nonspecific, Blood Transfusion Referrals: Sheets-La Mccollum MD [Primary Care Provider] - - Discharge Summary/Plan Comment DC Time >30 min.: No Discharge Summary/Plan Comment: Anemia, folate deficiency, GI bleed. Transfused 2 units PRBCs. H/H stable. 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 Back to [place] on folic acid, prilosec, ASA on hold. Smoking cessation discussed and strongly encouraged but she says no not ready to quit. - Patient Data Vitals - Most Recent: Last Vital Signs Temp 96 F 01/10/17 12:00 Pulse 72 01/10/17 12:00 Resp 16 01/10/17 12:00 BP 117/54 L 01/10/17 12:00 Pulse Ox 95 01/10/17 12:00 Weight - Most Recent: 102 lb 15.999 oz I&O - Last 24 hours: Intake & Output 01/09/17 01/10/17 01/10/17 22:59 06:59 14:59 Intake Total 240 400 Output Total 500 800 600 Balance -260 -400 -600 Lab Results - Last 24 hrs: Laboratory Results - last 24 hr 01/07/17 01/10/17 01/10/17 Range/Units 15:20 07:00 07:00 WBC 7.3 8.4 (3.9-11.3) x10-3 ul RBC 3.04 L 3.99 (4.10-5.30) x10-6 ul Hgb 9.2 L 11.8 (12.0-16.0) gm/dL Hct 27.2 L 36.4 (37.0-47.0) % MCV 90 91.2 (83-99) fL MCH 30.2 29.6 (28.0-32.0) pg MCHC 33.7 32.4 (32.0-36.0) g/dL RDW 13.8 15.0 H (10.9-15.7) Plt Count 273 447 H D (150-400) x10-3 ul Neut % (Auto) 67.4 (45.0-80.0) % Lymph % (Auto) 18.7 (10.0-50.0) % [place] % (Auto) 12.7 (2.0-14.0) % Eos % (Auto) 1.1 (0.0-5.0) % Baso % (Auto) 0.1 (0.0-2.0) % Neut # (Auto) 5.69 (1.40-7.00) K/uL Lymph # (Auto) 1.58 (0.50-3.50) K/uL [place] # (Auto) 1.07 H (0.00-1.00) K/uL Eos # (Auto) 0.09 (0.00-0.50) K/uL Baso # (Auto) 0.01 (0.00-0.20) K/uL Neutrophils % (Manual) 58 % Band Neuts % (Manual) 4 % Lymphocytes % (Manual) 24 % Monocytes % (Manual) 11 % Eosinophils % (Manual) 1 % Basophils % (Manual) 1 % Metamyelocytes % (Man) 0.5 % Myelocytes % (Man) 0.5 % Neutrophils # (Manual) 4.23 (1.80-7.00) x10-3 ul Band Neutrophils # Man 0.29 (0.00-0.70) x10-3 ul Lymphocytes # (Manual) 1.75 (1.00-4.80) x10-3 ul Monocytes # (Manual) 0.80 (0.00-0.80) x10-3 ul Eosinophils # (Manual) 0.07 (0.00-0.45) x10-3 ul Basophils # (Manual) 0.07 (0.00-0.20) x10-3 ul RBC/WBC/PLT Morphology Normal Platelet Estimate Adequate Smear Path Review Path rpt Absolute Retic 0.0330 (0.0200-0.1000) Percent Retic 1.1 (0.3-2.2) % Sodium 138 (136-145) mmol/L Potassium 3.4 L (3.5-5.1) mmol/L Chloride 105 (98-107) mmol/L Carbon Dioxide 25.8 (21.0-32.0) mmol/L BUN 5 L (7-18) mg/dL Creatinine 0.52 (0.51-1.17) mg/dL Est Cr Clr Drug Dosing 60.46 mL/min Estimated GFR (MDRD) > 60 mL/min Glucose 106 (74-106) mg/dL Calcium 9.0 (8.5-10.1) mg/dL Total Bilirubin 0.3 (0.2-1.0) mg/dL AST 21 (15-37) U/L ALT 20 (12-78) U/L Alkaline Phosphatase 92 (46-116) IU/L C-Reactive Protein 9.8 H (<=0.9) mg/dL Total Protein 6.3 L (6.4-8.2) g/dL Albumin 2.4 L (3.4-5.0) g/dL JOSE Results - Last 24 hrs: Microbiology 01/09/17 14:40 Stool Occult Blood (JOSE) - Final Stool / Feces - Stool, Formed NEGATIVE OCCULT BLOOD Med Orders - Current: Current Medications Hydrocodone Bitart/Acetaminophen ([place] 325-10 Mg) 1 tab PO QID [facility] Last Admin: 01/10/17 11:04 Dose: 1 tab Hydrocodone Bitart/Acetaminophen ([place] 325-10 Mg) 1 tab PO DAILY PRN PRN Reason: Pain Last Admin: 01/08/17 14:33 Dose: 1 tab Albuterol (Ventolin Hfa) 0 gm INH Q6HR [facility] Last Admin: 01/10/17 11:04 Dose: 2 inhalation Albuterol/Ipratropium (Duoneb 3.0-0.5 Mg/3 Ml) 3 ml INH Q4HR PRN PRN Reason: Shortness of Breath Amitriptyline HCl (Elavil) 50 mg PO BEDTIME [facility] Last Admin: 01/09/17 21:07 Dose: 50 mg Calcium Carbonate/Glycine (Tums) 1,000 mg PO Q6HR PRN PRN Reason: Indigestion Carisoprodol (Soma) 350 mg PO TID [facility] Last Admin: 01/10/17 11:04 Dose: 350 mg Carvedilol (Coreg) 3.125 mg PO Q12HR [facility] Last Admin: 01/10/17 07:52 Dose: 3.125 mg Clonazepam (Klonopin) 0.5 mg PO BEDTIME [facility] Last Admin: 01/09/17 21:08 Dose: 0.5 mg Folic Acid (Folic Acid) 1 mg PO DAILY [facility] Last Admin: 01/10/17 07:52 Dose: 1 mg Furosemide (Lasix) 40 mg PO DAILY [facility] Last Admin: 01/10/17 07:53 Dose: 40 mg Gabapentin (Neurontin) 200 mg PO TID [facility] Last Admin: 01/10/17 11:04 Dose: 200 mg Ciprofloxacin/Dextrose 400 mg/ (Premix) 200 mls @ 200 mls/hr IV Q12HR [facility] Last Admin: 01/10/17 07:51 Dose: 200 mls/hr Isosorbide Mononitrate (Imdur) 30 mg PO QPM [facility] Last Admin: 01/09/17 17:46 Dose: 30 mg Lactobacillus Rhamnosus (Culturelle) 1 cap PO BID [facility] Last Admin: 01/10/17 07:52 Dose: 1 cap Levothyroxine Sodium (Levothyroxine) 75 mcg PO ACBREAKFAST [facility] Last Admin: 01/10/17 07:51 Dose: 75 mcg Lidocaine (Lidoderm 5%) 700 mg TOP DAILY [facility] Last Admin: 01/10/17 07:53 Dose: 700 mg Miscellaneous Information (Remove Patch) 1 ea TRDERM BEDTIME [facility] Last Admin: 01/09/17 21:08 Dose: 1 ea Miscellaneous Information (Remove Patch) 1 ea TRDERM DAILY@1600 [facility] Last Admin: 01/09/17 15:57 Dose: Not Given Mometasone Furoate/Formoterol Fumar (Dulera 200-5 Mcg) 2 puff IH BID [facility] Last Admin: 01/10/17 07:52 Dose: 2 puff Nicotine (Habitrol) 21 mg TRDERM DAILY@1600 [facility] Last Admin: 01/09/17 15:58 Dose: Not Given Nitroglycerin (Nitrostat) 0.4 mg SL ASDIRECTED PRN PRN Reason: Chest Pain Ondansetron HCl (Zofran) 4 mg IVPUSH Q6H PRN PRN Reason: Nausea/Vomiting Pantoprazole Sodium (Protonix Iv) 40 mg IVPUSH BEDTIME [facility] Last Admin: 01/09/17 21:07 Dose: 40 mg Potassium Chloride (Klor-Con M20) 20 meq PO BID [facility] Last Admin: 01/10/17 07:53 Dose: 20 meq Sodium Chloride (Saline Flush) 10 ml FLUSH Q12HR [facility] Last Admin: 01/10/17 07:54 Dose: 10 ml Sucralfate (Carafate) 1 gm PO QIDACANDBED [facility] Last Admin: 01/10/17 11:04 Dose: 1 gm Tiotropium [place] (Spiriva Handihaler) 18 mcg INH QAM@0700 [facility] Last Admin: 01/10/17 07:51 Dose: 1 inh Discontinued Medications Amlodipine Besylate (Norvasc) 5 mg PO QAM [facility] Carvedilol (Coreg) 12.5 mg PO BIDM [facility] Last Admin: 01/08/17 07:41 Dose: 12.5 mg Carvedilol (Coreg) 6.25 mg PO Q12HR [facility] Last Admin: 01/09/17 07:43 Dose: 6.25 mg Furosemide (Lasix) 40 mg IVPUSH ONETIME ONE Stop: 01/07/17 19:01 Last Admin: 01/07/17 19:29 Dose: 40 mg Furosemide (Lasix) 40 mg IVPUSH ONETIME ONE Stop: 01/07/17 22:01 Last Admin: 01/07/17 23:15 Dose: Not Given Pantoprazole Sodium 80 mg/ (Sodium Chloride) 100 mls @ 10 mls/hr IV .Continuous [facility] Last Admin: 01/08/17 04:14 Dose: 10 mls/hr Sodium Chloride (Normal Saline) 1,000 mls @ 50 mls/hr IV ASDIRECTED [facility] Last Admin: 01/07/17 15:46 Dose: 50 mls/hr Miscellaneous Information (Remove Patch) 1 ea TRDERM DAILY [facility] Last Admin: 01/08/17 07:45 Dose: 1 ea Nicotine (Habitrol) 21 mg TRDERM DAILY [facility] Last Admin: 01/08/17 07:45 Dose: Not Given Potassium Chloride (Klor-Con M20) 20 meq PO ONETIME ONE Stop: 01/08/17 10:31 Last Admin: 01/08/17 11:03 Dose: 20 meq Potassium Chloride (Klor-Con M20) 20 meq PO ONETIME ONE Stop: 01/08/17 14:01 Last Admin: 01/08/17 14:32 Dose: 20 meq Potassium Chloride (Klor-Con M20) 20 meq PO ONETIME ONE Stop: 01/08/17 16:01 Last Admin: 01/08/17 16:36 Dose: 20 meq Potassium Chloride (Klor-Con M20) 20 meq PO ONETIME ONE Stop: 01/10/17 12:02 Last Admin: 01/10/17 12:10 Dose: 20 meq Sodium Chloride (Saline Flush) 10 ml FLUSH ASDIRECTED PRN PRN Reason: Keep Vein Open Last Admin: 01/09/17 07:44 Dose: 10 ml *Q Meaningful Use (DIS) - VTE *Q VTE Criteria *Q: - Stroke *Q Stroke Criteria *Q: - AMI *Q AMI Criteria *Q:
== END 2017-01-10 15:10 | DRG 378 ==
LOC: LL.MS 14:15
PROVIDERS: ADMIT Nurse Practitioner Family; ATTEND Family Medicine
PROC: 30253N1 (ICD-10-PCS; principal; 2017-01-07)
DX: K92.2 Gastrointestinal hemorrhage, unspecified (principal); N39.0 Urinary tract infection, site not specified; R10.9 Unspecified abdominal pain; F41.9 Anxiety disorder, unspecified; R53.1 Weakness; E87.6 Hypokalemia; D52.9 Folate deficiency anemia, unspecified; E78.00 Pure hypercholesterolemia, unspecified; Z95.1 Presence of aortocoronary bypass graft; J44.9 Chronic obstructive pulmonary disease, unspecified; M19.90 Unspecified osteoarthritis, unspecified site; F17.210 Nicotine dependence, cigarettes, uncomplicated
CPT/HCPCS: 36415; 36430; 74000; 80053; 82272; 82607; 82728; 82746; 83540; 83735; 84466; 85008; 85025; 86140; 86850; 86900; 86901; 86920; 86922; 94664; 97110-GP; 97116-GP; 97161-GP; 97530-GP; A9270-GY; C9113; J0744; J1940; J7030; J7050; P9016

== ENCOUNTER 2017-05-08 14:57 | Inpatient (IN) | payer MEDICARE, OTHER, MEDICAID ==
[2017-05-08] MEDS ORDERED: HYDROmorphone 1 MG/ML Syringe IVPUSH ONE (15:36)
[2017-05-08] MEDS ORDERED: Ondansetron 4 MG/2 ML SDV IVPUSH ONE (15:36)
[2017-05-08 15:39] LABS: CHLORIDE,CL 97 mmol/L (98-107); SODIUM,NA 136 mmol/L (136-145)
--- NOTE | 2017-05-08 15:44 | EDM.PDOC ---
ED HPI GENERAL MEDICAL PROBLEM - General Chief Complaint: General Stated Complaint: Abdominal Pain, N/V Time Seen by Provider: 05/08/17 15:25 Source of Information: Reports: Patient History Limitations: Reports: No Limitations - History of Present Illness INITIAL COMMENTS - FREE TEXT/NARRATIVE: The patient presents with complaint of a 3 day history of progressively worsening abdominal pain of the epigastric region and to a lesser degree periumbilical. She describes the pain as sharp and stabbing and she also has a associated nausea and has had 7 episodes of emesis today and 1 episode with a small tinge of blood. She states the pain began 3 days ago as sharp and aching and she rated it at that time at 5/10. She went into the clinic today for evaluation and was sent to the ER as her pain she is currently rating at 10/10. She denies diarrhea, hematochezia, or melena. She denies fever, chills, or bodyaches. She denies chest pain or SOB. She has a history significant for cholecystectomy. She denies other symptoms or complaints. Abdomen Pain Score (Numeric/FACES): 10 - Related Data Allergies Allergy/AdvReac Type Severity Reaction Status Date / Time codeine Allergy Chest Verified 05/08/17 16:16 Presssure Home Meds: Home Meds Fluticasone/Salmeterol [Advair 250-50] 1 puff INH BID 02/26/15 [History] Gemfibrozil 600 mg PO BID 02/26/15 [History] Hydrocodone/Acetaminophen [Lortab 10-325 mg Tablet] 1 each PO DAILY PRN [History] Isosorbide Mononitrate [Imdur] 30 mg PO QPM 02/26/15 [History] Levothyroxine 75 mcg PO ACBREAKFAST 02/26/15 [History] Sucralfate [Carafate] 1 gm PO QID 02/26/15 [History] Tiotropium [Spiriva HandiHaler] 18 mcg INH QAM@0700 02/26/15 [History] Albuterol Sulfate [Albuterol Sulfate HFA] 2 puff INH Q6HR 04/18/15 [History] Amitriptyline [Elavil] 50 mg PO BEDTIME 04/18/15 [History] Furosemide [Lasix] 40 mg PO DAILY 04/18/15 [History] Hydrocodone/Acetaminophen [[place] 10-325] 1 tab PO QID 04/18/15 [History] cycloSPORINE [Restasis] 1 drop EYEBOTH BID 04/18/15 [History] Acetaminophen 650 mg PO Q12HR PRN 01/05/17 [History] Calcium Carbonate [Tums] 1,000 mg PO Q6HR PRN 01/05/17 [History] Carvedilol [Coreg] 12.5 mg PO BIDM 01/05/17 [History] DULoxetine HCl [Cymbalta] 60 mg PO DAILY 01/05/17 [History] Ferrous Sulfate 325 mg PO DAILY 01/05/17 [History] Gabapentin [Neurontin] 300 mg PO TID 01/05/17 [History] Lidocaine 1 each TP BID PRN 01/05/17 [History] Nitroglycerin 0.4 mg SL ASDIRECTED PRN 01/05/17 [History] buPROPion [Wellbutrin XL] 300 mg PO DAILY 01/05/17 [History] clonazePAM [Klonopin] 0.5 mg PO BEDTIME 01/05/17 [History] Non-Formulary Medication [NF Drug] 250 mg PO BID 01/07/17 [History] Folic Acid 1 mg PO DAILY #30 tablet 01/10/17 [Rx] Carisoprodol [Soma] 350 mg PO TID 05/08/17 [History] Omeprazole 20 mg PO BID 05/08/17 [History] Potassium Chloride 20 meq PO TIDMEALS 05/08/17 [History] Past Medical History HEENT History: Reports: Cataract Other HEENT History: wears glasses. 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 Respiratory History: Reports: COPD Gastrointestinal History: Reports: Colon Polyp, GI Bleed Other Gastrointestinal History: appendectomy, cholecystectomy, hysterectomy Musculoskeletal History: Reports: Arthritis, Back Pain, Chronic, Osteoarthritis Other Musculoskeletal History: back surgery to lumbar spine Psychiatric History: Reports: Anxiety, Depression - Infectious Disease History Infectious Disease History: Reports: MRSA - Past Surgical History Neurological Surgical History: Reports: Other (See Below) Musculoskeletal Surgical History: Reports: Other (See Below) Social & Family History - Family History Endocrine/Metabolic: Reports: Diabetes, type II - Tobacco Use Smoking Status *Q: Current Every Day Smoker Years of Tobacco use: 60 Packs/Tins Daily: 0.1 Used Tobacco, but Quit: No Second Hand Smoke Exposure: No - Recreational Drug Use Recreational Drug Use: No ED ROS GENERAL - Review of Systems Review Of Systems: ROS reveals no pertinent complaints other than HPI. ED EXAM, GENERAL - Physical Exam Exam: See Below Exam Limited By: No Limitations General Appearance: Alert, WD/WN, No Apparent Distress, Other (Appears in moderate pain but does not appear as uncomfortable as her stated pain scale score of 10. Not ill-appearing. Cachectic. Slight pallor of skin. No diaphoresis.) Eye Exam: Bilateral Eye: EOMI, Normal Fundi, Normal Inspection, Nystagmus, PERRL Ears: Normal External Exam, Normal Canal, Hearing Grossly Normal, Normal TMs Ear Exam: Bilateral Ear: Auricle Normal, Canal Normal, TM normal Nose: Normal Inspection, Normal Mucosa, No Blood Throat/Mouth: Normal Inspection, Normal Lips, Normal Teeth, Normal Gums, Normal Oropharynx Head: Atraumatic, Normocephalic Neck: Normal Inspection, Supple, Non-Tender, Full Range of Motion. No: Lymphadenopathy (L), Lymphadenopathy (R), Tender Lateral, Tender Midline Respiratory/Chest: No Respiratory Distress, Lungs Clear, Normal Breath Sounds, No Accessory Muscle Use, Chest Non-Tender Cardiovascular: Normal Peripheral Pulses, Regular Rate, Rhythm, No Edema, No Gallop, No Murmur, No Rub Peripheral Pulses: 2+: Radial (L), Radial (R), Dorsalis Pedis (L), Dorsalis Pedis (R) GI/Abdominal: Soft, No Distention, Guarding, Rebound, Tender (Epigastric > LLQ > RLQ. ), Other (Bowel sounds slightly hyperactive. ) Back Exam: Normal Inspection, Full Range of Motion. No: CVA Tenderness (L), CVA Tenderness (R), Paraspinal Tenderness, Vertebral Tenderness Extremities: Normal Inspection, Normal Range of Motion, Non-Tender, No Pedal Edema, Normal Capillary Refill Neurological: Alert, Oriented, CN II-XII Intact, Normal Cognition, Normal Gait, Normal Reflexes, No Motor/Sensory Deficits Skin Exam: Warm, Dry, Intact, Normal Color, No Rash, Other (Decreased turgor. Tenting of skin.) Lymphatic: No Adenopathy Course - Vital Signs Last Recorded V/S: Last Vital Signs Temp 36.8 C 05/08/17 20:38 Pulse 85 05/08/17 20:38 Resp 16 05/08/17 20:38 BP 122/70 05/08/17 20:38 Pulse Ox 99 05/08/17 23:30 - Orders/Labs/Meds Orders: Active Orders 24 hr Category Date Time Status Peripheral IV Care [RC] . DIRECTED Care 05/08/17 15:12 Active Abdomen Pelvis w Cont [CT] Stat Exams 05/08/17 16:21 Taken Sodium Chloride 0.9% [Normal Saline] 1,000 ml Med 05/08/17 15:45 Active IV ASDIRECTED Sodium Chloride 0.9% [Saline Flush] Med 05/08/17 15:12 Active 10 ml FLUSH ASDIRECTED PRN Peripheral IV Insertion Adult [OM.PC] Routine Oth 05/08/17 15:12 Ordered Medication Orders Hydromorphone HCl (Dilaudid) 0.5 mg IVPUSH Q1H PRN PRN Reason: Abdominal Pain Last Admin: 05/08/17 22:29 Dose: 0.5 mg Sodium Chloride (Normal Saline) 1,000 mls @ 150 mls/hr IV ASDIRECTED ROSITA Last Admin: 05/08/17 15:40 Dose: 150 mls/hr Sodium Chloride (Saline Flush) 10 ml FLUSH ASDIRECTED PRN PRN Reason: Keep Vein Open Last Admin: 05/08/17 18:12 Dose: 10 ml Labs: Laboratory Tests 05/08/17 05/08/17 05/08/17 Range/Units 15:20 15:20 15:20 WBC 13.7 H (4.0-10.2) K/uL RBC 4.75 (3.77-5.09) M/uL Hgb 15.3 D (11.7-15.5) g/dL Hct 45.2 (34.0-46.0) % MCV 95.2 D (84.0-98.0) fL MCH 32.2 (28.2-33.3) pg MCHC 33.8 (31.7-36.0) g/dL RDW 14.3 H (11.2-14.1) % Plt Count 527 H D (150-350) K/uL Neut % (Auto) 74.3 (45.0-80.0) % Lymph % (Auto) 17.6 (10.0-50.0) % Hardy % (Auto) 7.9 (2.0-14.0) % Eos % (Auto) 0.1 (0.0-5.0) % Baso % (Auto) 0.1 (0.0-2.0) % Neut # (Auto) 10.17 H (1.40-7.00) K/uL Lymph # (Auto) 2.41 (0.50-3.50) K/uL Hardy # (Auto) 1.08 H (0.00-1.00) K/uL Eos # (Auto) 0.01 (0.00-0.50) K/uL Baso # (Auto) 0.02 (0.00-0.20) K/uL PT 11.9 H (9.8-11.7) SEC INR 1.1 APTT 29.8 (23.5-30.0) SEC Sodium 136 (136-145) mmol/L Potassium 5.0 D (3.5-5.1) mmol/L Chloride 97 L (98-107) mmol/L Carbon Dioxide 24.0 (21.0-32.0) mmol/L BUN 26 H (7-18) mg/dL Creatinine 0.96 (0.51-1.17) mg/dL Est Cr Clr Drug Dosing TNP Estimated GFR (MDRD) 55 mL/min Glucose 183 H (74-106) mg/dL Calcium 10.7 H D (8.5-10.1) mg/dL Total Bilirubin 0.6 (0.2-1.0) mg/dL AST 20 (15-37) U/L ALT 15 (12-78) U/L Alkaline Phosphatase 189 H (46-116) IU/L C-Reactive Protein 3.2 H (<=0.9) mg/dL Total Protein 9.2 H (6.4-8.2) g/dL Albumin 4.4 (3.4-5.0) g/dL Amylase 160 H (25-115) U/L Lipase 88 (73-393) U/L Specimen Type Urine Color Urine Appearance Urine pH (5.0-9.0) Ur Specific [place] (1.005-1.030) Urine Protein (NEGATIVE) mg/dL Urine Glucose (UA) (NEGATIVE) mg/dL Urine Ketones (NEGATIVE) mg/dL Urine Occult Blood (NEGATIVE) Urine Nitrite (NEGATIVE) Urine Bilirubin (NEGATIVE) Urine Urobilinogen (0.2-1.0) E.U./dL Ur Leukocyte Esterase (NEGATIVE) Urine RBC /HPF Urine WBC /HPF Ur Epithelial Cells /LPF Urine Bacteria (NONE TO FEW) /HPF Hyaline Casts (NEGATIVE) /LPF 05/08/17 Range/Units 19:30 WBC (4.0-10.2) K/uL RBC (3.77-5.09) M/uL Hgb (11.7-15.5) g/dL Hct (34.0-46.0) % MCV (84.0-98.0) fL MCH (28.2-33.3) pg MCHC (31.7-36.0) g/dL RDW (11.2-14.1) % Plt Count (150-350) K/uL Neut % (Auto) (45.0-80.0) % Lymph % (Auto) (10.0-50.0) % Hardy % (Auto) (2.0-14.0) % Eos % (Auto) (0.0-5.0) % Baso % (Auto) (0.0-2.0) % Neut # (Auto) (1.40-7.00) K/uL Lymph # (Auto) (0.50-3.50) K/uL Hardy # (Auto) (0.00-1.00) K/uL Eos # (Auto) (0.00-0.50) K/uL Baso # (Auto) (0.00-0.20) K/uL PT (9.8-11.7) SEC INR APTT (23.5-30.0) SEC Sodium (136-145) mmol/L Potassium (3.5-5.1) mmol/L Chloride (98-107) mmol/L Carbon Dioxide (21.0-32.0) mmol/L BUN (7-18) mg/dL Creatinine (0.51-1.17) mg/dL Est Cr Clr Drug Dosing Estimated GFR (MDRD) mL/min Glucose (74-106) mg/dL Calcium (8.5-10.1) mg/dL Total Bilirubin (0.2-1.0) mg/dL AST (15-37) U/L ALT (12-78) U/L Alkaline Phosphatase (46-116) IU/L C-Reactive Protein (<=0.9) mg/dL Total Protein (6.4-8.2) g/dL Albumin (3.4-5.0) g/dL Amylase (25-115) U/L Lipase (73-393) U/L Specimen Type Urinblad Urine Color Dark yellow Urine Appearance Cloudy Urine pH 5.5 (5.0-9.0) Ur Specific [place] 1.010 (1.005-1.030) Urine Protein 30 H (NEGATIVE) mg/dL Urine Glucose (UA) Negative (NEGATIVE) mg/dL Urine Ketones Trace H (NEGATIVE) mg/dL Urine Occult Blood Negative (NEGATIVE) Urine Nitrite Positive H (NEGATIVE) Urine Bilirubin Negative (NEGATIVE) Urine Urobilinogen 0.2 (0.2-1.0) E.U./dL Ur Leukocyte Esterase Trace H (NEGATIVE) Urine RBC 0-5 /HPF Urine WBC 10-20 H /HPF Ur Epithelial Cells Few /LPF Urine Bacteria Many H (NONE TO FEW) /HPF Hyaline Casts Few H (NEGATIVE) /LPF Meds: Medications Generic Name Dose Route Start Last Admin Trade Name Freq PRN Reason Stop Dose Admin Hydromorphone HCl 0.5 mg 05/08/17 21:55 05/08/17 22:29 Dilaudid IVPUSH 0.5 mg Q1H PRN Administration Abdominal Pain Sodium Chloride 1,000 mls @ 150 mls/hr 05/08/17 15:45 05/08/17 15:40 Normal Saline IV 150 mls/hr ASDIRECTED ROSITA Administration Sodium Chloride 10 ml 05/08/17 15:12 05/08/17 18:12 Saline Flush FLUSH 10 ml ASDIRECTED PRN Administration Keep Vein Open Discontinued Medications Generic Name Dose Route Start Last Admin Trade Name Freq PRN Reason Stop Dose Admin Hydromorphone HCl 1 mg 05/08/17 15:36 05/08/17 15:45 Dilaudid IVPUSH 05/08/17 15:37 1 mg ONETIME ONE Administration Hydromorphone HCl 0.5 mg 05/08/17 16:23 05/08/17 16:24 Dilaudid IV 05/08/17 16:24 0.5 mg ONETIME ONE Administration Hydromorphone HCl 0.5 mg 05/08/17 16:58 05/08/17 17:00 Dilaudid IM 05/08/17 16:59 0.5 mg ONETIME ONE Administration Iopamidol 100 ml 05/08/17 17:30 05/08/17 17:37 Isovue-300 (61%) IVPUSH 05/08/17 17:31 100 ml ONETIME ONE Administration Ondansetron HCl 4 mg 05/08/17 15:36 05/08/17 15:44 Zofran IVPUSH 05/08/17 15:37 4 mg ONETIME ONE Administration - Radiology Interpretation Free Text/Narrative:: Discussed CT of the abdomen/pelvis with [facility] radiologist and noted small bowel obstruction with distended bowel loops proximally and normal caliber distal to obstruction. Obstruction appears at approximately the junction of the jejunum and ileum. Radiologist agrees no signs of ischemia or necrosis of bowel at this time. Departure - Departure Time of Disposition: 00:50 Disposition: Admitted As Inpatient 64 Clinical Impression: Small bowel obstruction, Elevated C-reactive protein (CRP), Dehydration, moderate UTI (urinary tract infection) Qualifiers: Urinary tract infection type: site unspecified Hematuria presence: without hematuria Qualified Code(s): N39.0 - Urinary tract infection, site not specified Leukocytosis Qualifiers: Leukocytosis type: bandemia Qualified Code(s): D72.825 - Bandemia - Discharge Information - My Orders Last 24 Hours: My Active Orders 05/08/17 15:12 Peripheral IV Care [RC] . DIRECTED Sodium Chloride 0.9% [Saline Flush] 10 ml FLUSH ASDIRECTED PRN Peripheral IV Insertion Adult [OM.PC] Routine 05/08/17 15:45 Sodium Chloride 0.9% [Normal Saline] 1,000 ml IV ASDIRECTED 05/08/17 16:21 Abdomen Pelvis w Cont [CT] Stat - Assessment/Plan Last 24 Hours: My Active Orders 05/08/17 15:12 Peripheral IV Care [RC] . DIRECTED Sodium Chloride 0.9% [Saline Flush] 10 ml FLUSH ASDIRECTED PRN Peripheral IV Insertion Adult [OM.PC] Routine 05/08/17 15:45 Sodium Chloride 0.9% [Normal Saline] 1,000 ml IV ASDIRECTED 05/08/17 16:21 Abdomen Pelvis w Cont [CT] Stat Assessment:: Small Bowel Obstruction. UTI. Leukocytosis. Elevated CRP. Moderate dehydration. Plan: 1. Urine culture. 2. NG tube placed in ER. 3. Admit to acute inpatient. 4. NPO with bowel rest. 5. Dilaudid 0.5 mg IV every 1 hour PRN pain. 6. Zofran 4 mg IV every 6 hours PRN nausea. 7. GLEN iniguez, SCD's, and Lovenox for DVT prophylaxis. 8. Incentive spirometer for pneumonia prophylaxis.
[2017-05-08] MEDS ORDERED: Sodium Chloride 0.9% 1,000 ML IV SCH (15:45)
[2017-05-08] MEDS ORDERED: HYDROmorphone 1 MG/ML Syringe IV ONE (16:23)
[2017-05-08] MEDS ORDERED: HYDROmorphone 1 MG/ML Syringe IM ONE (16:58)
[2017-05-08] MEDS ORDERED: Iopamidol 612 MG/ML 100 ML Bottle IVPUSH ONE (17:30)
[2017-05-08] MEDS: Sodium Chloride 0.9% 10 ML Syringe FLUSH PRN (18:12)
[2017-05-08] MEDS: HYDROmorphone 1 MG/ML Syringe IVPUSH PRN (22:29)
--- NOTE | 2017-05-09 00:58 | PCM.HPR ---
H & P Addendum review - H & P Addendum Review Date of Original H & P: 05/09/17 Date Reviewed: 05/09/17 Patient was Examined: No Changes (Admitted to acute inpatient. Please see ER note for Admission History and Physical.)
[2017-05-09] MEDS ORDERED: Sodium Chloride 0.9% 1,000 ML IV SCH (01:15)
[2017-05-09] MEDS: Formoterol/Mometasone 200-5 MCG 8.8 GM Inhaler IH SCH ×2 (01:48→09:08)
[2017-05-09] MEDS: Ciprofloxacin in D5W 400 MG in Premix Bag 1 BAG IV SCH ×4 (01:49→09:09)
[2017-05-09] MEDS: Albuterol 8 GM Inhaler INH SCH ×3 (04:15→16:07)
[2017-05-09] MEDS: HYDROmorphone 1 MG/ML Syringe IVPUSH PRN ×4 (05:29→16:06)
[2017-05-09] MEDS ORDERED: Enoxaparin 60 MG/0.6 ML Syringe SUBCUT SCH (08:00)
[2017-05-09] MEDS ORDERED: Furosemide 40 MG/4 ML VIAL IVPUSH SCH (08:00)
[2017-05-09] MEDS ORDERED: Furosemide 20 MG/2 ML VIAL IVPUSH SCH (08:00)
[2017-05-09] MEDS ORDERED: Enoxaparin 30 MG/0.3 ML Syringe SUBCUT SCH (08:00)
[2017-05-09 08:02] LABS: CHLORIDE,CL 98 mmol/L (98-107); SODIUM,NA 135 mmol/L (136-145)
[2017-05-09] MEDS: Sodium Chloride 0.9% 10 ML Syringe FLUSH PRN ×2 (08:57→09:00)
--- NOTE | 2017-05-09 12:09 | PCM.PN ---
- General Info Date of Service: 05/09/17 Functional Status: Reports: Pain Controlled - Review of Systems General: Reports: Weakness HEENT: Reports: No Symptoms Pulmonary: Reports: No Symptoms Cardiovascular: Reports: No Symptoms Gastrointestinal: Reports: Abdominal Pain (improving), Other (no flatus) Genitourinary: Reports: No Symptoms Musculoskeletal: Reports: Back Pain (chronic) Skin: Reports: No Symptoms Neurological: Reports: No Symptoms Psychiatric: Reports: No Symptoms - Patient Data Vitals - Most Recent: Last Vital Signs Temp 98 F 05/09/17 08:41 Pulse 81 05/09/17 08:41 Resp 20 05/09/17 05:02 BP 107/60 05/09/17 08:41 Pulse Ox 95 05/09/17 08:41 Weight - Most Recent: 97 lb 9.6 oz I&O - Last 24 Hours: Intake & Output 05/08/17 05/09/17 05/09/17 22:59 06:59 14:59 Intake Total 825 Output Total 1200 900 Balance -1200 -75 Lab Results Last 24 Hours: Laboratory Results - last 24 hr 05/09/17 05/09/17 Range/Units 07:15 07:15 WBC 11.7 H (4.0-10.2) K/uL RBC 4.23 (3.77-5.09) M/uL Hgb 13.7 D (11.7-15.5) g/dL Hct 40.5 (34.0-46.0) % MCV 95.7 (84.0-98.0) fL MCH 32.4 (28.2-33.3) pg MCHC 33.8 (31.7-36.0) g/dL RDW 14.0 (11.2-14.1) % Plt Count 435 H D (150-350) K/uL Neut % (Auto) 69.7 (45.0-80.0) % Lymph % (Auto) 17.2 (10.0-50.0) % [place] % (Auto) 12.7 (2.0-14.0) % Eos % (Auto) 0.2 (0.0-5.0) % Baso % (Auto) 0.2 (0.0-2.0) % Neut # (Auto) 8.18 H (1.40-7.00) K/uL Lymph # (Auto) 2.02 (0.50-3.50) K/uL [place] # (Auto) 1.49 H (0.00-1.00) K/uL Eos # (Auto) 0.02 (0.00-0.50) K/uL Baso # (Auto) 0.02 (0.00-0.20) K/uL Sodium 135 L (136-145) mmol/L Potassium 3.7 (3.5-5.1) mmol/L Chloride 98 (98-107) mmol/L Carbon Dioxide 24.5 (21.0-32.0) mmol/L BUN 19 H (7-18) mg/dL Creatinine 0.61 (0.51-1.17) mg/dL Est Cr Clr Drug Dosing 47.98 mL/min Estimated GFR (MDRD) > 60 mL/min Glucose 106 (74-106) mg/dL Calcium 9.7 (8.5-10.1) mg/dL Total Bilirubin 0.6 (0.2-1.0) mg/dL AST 18 (15-37) U/L ALT 15 (12-78) U/L Alkaline Phosphatase 139 H (46-116) IU/L C-Reactive Protein 7.3 H (<=0.9) mg/dL Total Protein 7.7 (6.4-8.2) g/dL Albumin 3.5 (3.4-5.0) g/dL Med Orders - Current: Current Medications Albuterol (Ventolin Hfa) 0 gm INH Q6HR [facility] Last Admin: 05/09/17 10:01 Dose: 2 inhalation Enoxaparin Sodium (Lovenox) 30 mg SUBCUT DAILY [facility] Last Admin: 05/09/17 08:54 Dose: 30 mg Furosemide (Lasix) 20 mg IVPUSH DAILY [facility] Last Admin: 05/09/17 08:55 Dose: 20 mg Hydromorphone HCl (Dilaudid) 0.5 mg IVPUSH Q1H PRN PRN Reason: Abdominal Pain Last Admin: 05/09/17 08:58 Dose: 0.5 mg Ciprofloxacin/Dextrose 400 mg/ (Premix) 200 mls @ 200 mls/hr IV Q12HR [facility] Stop: 05/14/17 01:16 Last Admin: 05/09/17 09:09 Dose: 200 mls/hr Sodium Chloride (Normal Saline) 1,000 mls @ 50 mls/hr IV ASDIRECTED [facility] Last Admin: 05/09/17 04:58 Dose: 50 mls/hr Mometasone Furoate/Formoterol Fumar (Dulera 200-5 Mcg) 2 puff IH BIDRT [facility] Last Admin: 05/09/17 09:08 Dose: Not Given Sodium Chloride (Saline Flush) 10 ml FLUSH ASDIRECTED PRN PRN Reason: Keep Vein Open Last Admin: 05/09/17 09:00 Dose: 10 ml Discontinued Medications Enoxaparin Sodium (Lovenox) 30 mg SUBCUT DAILY [facility] Furosemide (Lasix) 20 mg IVPUSH DAILY [facility] Hydromorphone HCl (Dilaudid) 1 mg IVPUSH ONETIME ONE Stop: 05/08/17 15:37 Last Admin: 05/08/17 15:45 Dose: 1 mg Hydromorphone HCl (Dilaudid) 0.5 mg IV ONETIME ONE Stop: 05/08/17 16:24 Last Admin: 05/08/17 16:24 Dose: 0.5 mg Hydromorphone HCl (Dilaudid) 0.5 mg IM ONETIME ONE Stop: 05/08/17 16:59 Last Admin: 05/08/17 17:00 Dose: 0.5 mg Sodium Chloride (Normal Saline) 1,000 mls @ 150 mls/hr IV ASDIRECTED [facility] Last Admin: 05/08/17 15:40 Dose: 150 mls/hr Iopamidol (Isovue-300 (61%)) 100 ml IVPUSH ONETIME ONE Stop: 05/08/17 17:31 Last Admin: 05/08/17 17:37 Dose: 100 ml Ondansetron HCl (Zofran) 4 mg IVPUSH ONETIME ONE Stop: 05/08/17 15:37 Last Admin: 05/08/17 15:44 Dose: 4 mg - Exam Quality Assessment: DVT Prophylaxis General: Alert, Cooperative, Mild Distress HEENT: Mucous Membr. Moist/[place], Other (NGT in place) Neck: Trachea Midline, No JVD Lungs: Normal Respiratory Effort, Decreased Breath Sounds Cardiovascular: Regular Rate, Regular Rhythm GI/Abdominal Exam: Soft, Non-Tender, No Distention, Abnormal Bowel Sounds (Female) Exam: Deferred Back Exam: Other (scoliosis, kyphosis) Extremities: Normal Inspection, No Pedal Edema Skin: Warm, Dry, Intact Neurological: No New Focal Deficit Psy/Mental Status: Alert, Normal Affect, Normal Mood, Anxious - Problem List & Annotations (1) Dehydration, moderate SNOMED Code(s): 7280258109915 Code(s): E86.0 - DEHYDRATION Status: Acute Priority: High Current Visit : Yes (2) Elevated C-reactive protein (CRP) SNOMED Code(s): 849570142 Code(s): R79.82 - ELEVATED C-REACTIVE PROTEIN (CRP) Status: Acute Priority: High Current Visit: Yes (3) Leukocytosis SNOMED Code(s): 320474273, 951702945 Code(s): D72.829 - ELEVATED WHITE BLOOD CELL COUNT, UNSPECIFIED Status: Acute Priority: High Current Visit: Yes Qualifiers: Leukocytosis type: bandemia Qualified Code(s): D72.825 - Bandemia (4) Small bowel obstruction SNOMED Code(s): 384044074 Code(s): K56.69 - OTHER INTESTINAL OBSTRUCTION Status: Acute Priority: High Current Visit: Yes (5) UTI (urinary tract infection) SNOMED Code(s): 33789996 Code(s): N39.0 - URINARY TRACT INFECTION, SITE NOT SPECIFIED Status: Acute Priority: Medium Current Visit: Yes Qualifiers: Urinary tract infection type: site unspecified Hematuria presence: without hematuria Qualified Code(s): N39.0 - Urinary tract infection, site not specified (6) Anemia SNOMED Code(s): 809641829 Code(s): D64.9 - ANEMIA, UNSPECIFIED Status: Acute Priority: Medium Current Visit: No Qualifiers: Anemia type: unspecified type Qualified Code(s): D64.9 - Anemia, unspecified (7) Anxiety SNOMED Code(s): 24601499 Code(s): F41.9 - ANXIETY DISORDER, UNSPECIFIED Status: Acute Priority: Medium Current Visit: No (8) Generalized weakness SNOMED Code(s): 83326400 Code(s): R53.1 - WEAKNESS Status: Acute Priority: Medium Current Visit : No - Problem List Review Problem List Initiated/Reviewed/Updated: Yes - My Orders Last 24 Hours: My Active Orders 05/09/17 12:02 Communication Order [RC] ROUTINE - Plan Plan:: 05/09/17 Johnathan Mccollum MD Feeling a little better. Abdomenal pain some improvement. No flatus. Discussed with her continued medical therapy at this time. Will consult surgery. She is in agreement. Talked to Dr. Herbert Wright on the telephone. He will evaluate.
[2017-05-09 16:03] VITALS: BP 131/88
[2017-05-09] MEDS ORDERED: Pantoprazole 40 MG Vial IVPUSH ONE (16:17)
--- NOTE | 2017-05-09 16:27 | PCM.SN ---
- Free Text/Narrative Note: 05/09/17 Johnathan Mccollum MD Talked with Dr. Wright. He recommends transfer to [place]. Clinnically worse. She agrees and prefers . Called [facility] at ~1615. Talk[address] Dr[address] Wells. She will accept her for transfer to med-surg.
--- NOTE | 2017-05-09 16:28 | PCM.DCSUM1 ---
Discharge Summary - Discharge Data Discharge Date: 05/09/17 Discharge Disposition: DC/Tfer to Acute Hospital 02 Condition: Fair - Discharge Diagnosis/Problem(s) (1) Dehydration, moderate SNOMED Code(s): 2611163546431 ICD Code: E86.0 - DEHYDRATION Status: Acute Priority: High Current Visit: Yes (2) Elevated C-reactive protein (CRP) SNOMED Code(s): 109132062 ICD Code: R79.82 - ELEVATED C-REACTIVE PROTEIN (CRP) Status: Acute Priority: High Current Visit: Yes (3) Leukocytosis SNOMED Code(s): 100786805, 614125467 ICD Code: D72.829 - ELEVATED WHITE BLOOD CELL COUNT, UNSPECIFIED Status: Acute Priority: High Current Visit: Yes Qualifiers: Leukocytosis type: bandemia Qualified Code(s): D72.825 - Bandemia (4) Small bowel obstruction SNOMED Code(s): 245202846 ICD Code: K56.69 - OTHER INTESTINAL OBSTRUCTION Status: Acute Priority: High Current Visit: Yes (5) UTI (urinary tract infection) SNOMED Code(s): 31836770 ICD Code: N39.0 - URINARY TRACT INFECTION, SITE NOT SPECIFIED Status: Acute Priority: Medium Current Visit: Yes Qualifiers: Urinary tract infection type: site unspecified Hematuria presence: without hematuria Qualified Code(s): N39.0 - Urinary tract infection, site not specified (6) Anemia SNOMED Code(s): 222442377 ICD Code: D64.9 - ANEMIA, UNSPECIFIED Status: Acute Priority: Medium Current Visit: No Qualifiers: Anemia type: unspecified type Qualified Code(s): D64.9 - Anemia, unspecified (7) Anxiety SNOMED Code(s): 53945103 ICD Code: F41.9 - ANXIETY DISORDER, UNSPECIFIED Status: Acute Priority: Medium Current Visit: No (8) Generalized weakness SNOMED Code(s): 29589032 ICD Code: R53.1 - WEAKNESS Status: Acute Priority: Medium Current Visit : No - Patient Instructions Diet: NPO Activity: Bedrest, May Use Bathroom - Discharge Plan Home Medications: Home Meds Fluticasone/Salmeterol [Advair 250-50] 1 puff INH BID 02/26/15 [History] Gemfibrozil 600 mg PO BID 02/26/15 [History] Hydrocodone/Acetaminophen [Lortab 10-325 mg Tablet] 1 each PO DAILY PRN [History] Isosorbide Mononitrate [Imdur] 30 mg PO QPM 02/26/15 [History] Levothyroxine 75 mcg PO ACBREAKFAST 02/26/15 [History] Sucralfate [Carafate] 1 gm PO QID 02/26/15 [History] Tiotropium [Spiriva HandiHaler] 18 mcg INH QAM@0700 02/26/15 [History] Albuterol Sulfate [Albuterol Sulfate HFA] 2 puff INH Q6HR 04/18/15 [History] Amitriptyline [Elavil] 50 mg PO BEDTIME 04/18/15 [History] Furosemide [Lasix] 40 mg PO DAILY 04/18/15 [History] Hydrocodone/Acetaminophen [Canton 10-325] 1 tab PO QID 04/18/15 [History] cycloSPORINE [Restasis] 1 drop EYEBOTH BID 04/18/15 [History] Acetaminophen 650 mg PO Q12HR PRN 01/05/17 [History] Calcium Carbonate [Tums] 1,000 mg PO Q6HR PRN 01/05/17 [History] Carvedilol [Coreg] 12.5 mg PO BIDM 01/05/17 [History] DULoxetine HCl [Cymbalta] 60 mg PO DAILY 01/05/17 [History] Ferrous Sulfate 325 mg PO DAILY 01/05/17 [History] Gabapentin [Neurontin] 300 mg PO TID 01/05/17 [History] Lidocaine 1 each TP BID PRN 01/05/17 [History] Nitroglycerin 0.4 mg SL ASDIRECTED PRN 01/05/17 [History] buPROPion [Wellbutrin XL] 300 mg PO DAILY 01/05/17 [History] clonazePAM [Klonopin] 0.5 mg PO BEDTIME 01/05/17 [History] Non-Formulary Medication [NF Drug] 250 mg PO BID 01/07/17 [History] Folic Acid 1 mg PO DAILY #30 tablet 01/10/17 [Rx] Carisoprodol [Soma] 350 mg PO TID 05/08/17 [History] Omeprazole 20 mg PO BID 05/08/17 [History] Potassium Chloride 20 meq PO TIDMEALS 05/08/17 [History] Patient Handouts: Ondansetron injection, Small Bowel Obstruction, Cgib-ps-Axen , Hydromorphone injection, Urinary Tract Infection, Adult, Ciprofloxacin injection Forms: ED Department Discharge Referrals: Sheets-La Mccollum MD [Primary Care Provider] - - Discharge Summary/Plan Comment DC Time >30 min.: No - Patient Data Vitals - Most Recent: Last Vital Signs Temp 98.8 F 05/09/17 15:56 Pulse 88 05/09/17 15:56 Resp 28 H 05/09/17 15:56 BP 131/88 05/09/17 15:56 Pulse Ox 98 05/09/17 15:56 Weight - Most Recent: 97 lb 9.6 oz I&O - Last 24 hours: Intake & Output 05/09/17 05/09/17 05/09/17 06:59 14:59 22:59 Intake Total 825 Output Total 900 Balance -75 Lab Results - Last 24 hrs: Laboratory Results - last 24 hr 05/09/17 05/09/17 Range/Units 07:15 07:15 WBC 11.7 H (4.0-10.2) K/uL RBC 4.23 (3.77-5.09) M/uL Hgb 13.7 D (11.7-15.5) g/dL Hct 40.5 (34.0-46.0) % MCV 95.7 (84.0-98.0) fL MCH 32.4 (28.2-33.3) pg MCHC 33.8 (31.7-36.0) g/dL RDW 14.0 (11.2-14.1) % Plt Count 435 H D (150-350) K/uL Neut % (Auto) 69.7 (45.0-80.0) % Lymph % (Auto) 17.2 (10.0-50.0) % Hendricks % (Auto) 12.7 (2.0-14.0) % Eos % (Auto) 0.2 (0.0-5.0) % Baso % (Auto) 0.2 (0.0-2.0) % Neut # (Auto) 8.18 H (1.40-7.00) K/uL Lymph # (Auto) 2.02 (0.50-3.50) K/uL Hendricks # (Auto) 1.49 H (0.00-1.00) K/uL Eos # (Auto) 0.02 (0.00-0.50) K/uL Baso # (Auto) 0.02 (0.00-0.20) K/uL Sodium 135 L (136-145) mmol/L Potassium 3.7 (3.5-5.1) mmol/L Chloride 98 (98-107) mmol/L Carbon Dioxide 24.5 (21.0-32.0) mmol/L BUN 19 H (7-18) mg/dL Creatinine 0.61 (0.51-1.17) mg/dL Est Cr Clr Drug Dosing 47.98 mL/min Estimated GFR (MDRD) > 60 mL/min Glucose 106 (74-106) mg/dL Calcium 9.7 (8.5-10.1) mg/dL Total Bilirubin 0.6 (0.2-1.0) mg/dL AST 18 (15-37) U/L ALT 15 (12-78) U/L Alkaline Phosphatase 139 H (46-116) IU/L C-Reactive Protein 7.3 H (<=0.9) mg/dL Total Protein 7.7 (6.4-8.2) g/dL Albumin 3.5 (3.4-5.0) g/dL Med Orders - Current: Current Medications Albuterol (Ventolin Hfa) 0 gm INH Q6HR [facility] Last Admin: 05/09/17 16:07 Dose: 2 inhalation Furosemide (Lasix) 20 mg IVPUSH DAILY [facility] Last Admin: 05/09/17 08:55 Dose: 20 mg Hydromorphone HCl (Dilaudid) 0.5 mg IVPUSH Q1H PRN PRN Reason: Abdominal Pain Last Admin: 05/09/17 16:06 Dose: 0.5 mg Ciprofloxacin/Dextrose 400 mg/ (Premix) 200 mls @ 200 mls/hr IV Q12HR [facility] Stop: 05/14/17 01:16 Last Admin: 05/09/17 09:09 Dose: 200 mls/hr Sodium Chloride (Normal Saline) 1,000 mls @ 50 mls/hr IV ASDIRECTED [facility] Last Admin: 05/09/17 04:58 Dose: 50 mls/hr Mometasone Furoate/Formoterol Fumar (Dulera 200-5 Mcg) 2 puff IH BIDRT [facility] Last Admin: 05/09/17 09:08 Dose: Not Given Sodium Chloride (Saline Flush) 10 ml FLUSH ASDIRECTED PRN PRN Reason: Keep Vein Open Last Admin: 05/09/17 09:00 Dose: 10 ml Discontinued Medications Enoxaparin Sodium (Lovenox) 30 mg SUBCUT DAILY [facility] Enoxaparin Sodium (Lovenox) 30 mg SUBCUT DAILY [facility] Last Admin: 05/09/17 08:54 Dose: 30 mg Furosemide (Lasix) 20 mg IVPUSH DAILY [facility] Hydromorphone HCl (Dilaudid) 1 mg IVPUSH ONETIME ONE Stop: 05/08/17 15:37 Last Admin: 05/08/17 15:45 Dose: 1 mg Hydromorphone HCl (Dilaudid) 0.5 mg IV ONETIME ONE Stop: 05/08/17 16:24 Last Admin: 05/08/17 16:24 Dose: 0.5 mg Hydromorphone HCl (Dilaudid) 0.5 mg IM ONETIME ONE Stop: 05/08/17 16:59 Last Admin: 05/08/17 17:00 Dose: 0.5 mg Sodium Chloride (Normal Saline) 1,000 mls @ 150 mls/hr IV ASDIRECTED [facility] Last Admin: 05/08/17 15:40 Dose: 150 mls/hr Iopamidol (Isovue-300 (61%)) 100 ml IVPUSH ONETIME ONE Stop: 05/08/17 17:31 Last Admin: 05/08/17 17:37 Dose: 100 ml Ondansetron HCl (Zofran) 4 mg IVPUSH ONETIME ONE Stop: 05/08/17 15:37 Last Admin: 05/08/17 15:44 Dose: 4 mg Pantoprazole Sodium (Protonix Iv) 40 mg IVPUSH ONETIME ONE Stop: 05/09/17 16:18 *Q Meaningful Use (DIS) - VTE *Q VTE Criteria *Q: - Stroke *Q Stroke Criteria *Q: - AMI *Q AMI Criteria *Q:
[2017-05-09] MEDS ORDERED: Ondansetron 4 MG/2 ML SDV IVPUSH ONE (16:57)
[2017-05-09] MEDS ORDERED: HYDROmorphone 1 MG/ML Syringe IVPUSH ONE (16:58)
--- NOTE | 2017-05-10 15:29 | PN ---
Surgical Consultation: 05/09/2017 HISTORY OF PRESENT ILLNESS: This 82-year-old female is seen today in consultation at the request of Dr. Cordero. This patient. [facility] complaints of vomiting and abdominal pain. She states that the symptoms began on the night of 05/07/2017. She has noticed increased abdominal pain since then. Upon initial hospital evaluation last night, the patient underwent a CT scan of the abdomen and pelvis, which was interpreted as showing findings consistent with small-bowel obstruction. These films are reviewed today and do show dilated small bowel. Other diagnostic data included an elevated serum white blood cell count of 13,700 upon admission along with mildly elevated amylase at 160. Upon evaluation earlier today, the patient's pain apparently was improved from last night with less nausea since the NG tube was placed. Upon evaluation at this time, the patient states to me that her abdominal pain has currently been slightly worsening and now it is no better than it was upon admission. She says the pain is relatively constant. She denies passage of any stool or flatus today. Diagnostic data this morning shows a white blood cell count to remain slightly elevated, now at 11.7. Her C-reactive protein also was increased from 3.2 last night to 7.3 today. PAST MEDICAL HISTORY: Includes coronary artery disease. She has had two previous coronary artery bypass grafts placed. PAST SURGICAL HISTORY: She has had multiple other surgeries including multiple back surgeries, but also abdominal surgeries, which include cholecystectomy, appendectomy, and hysterectomy. MEDICATIONS: She have multiple routine medications includin. Nitroglycerin p.r.n. 2. Imdur. 3. Coreg. 4. Spiriva inhaler. 5. Lasix. 6. Advair inhalers. Surgical Consultation: 05/09/2017 PHYSICAL EXAMINATION: Vital Signs: Temperature of 97.5, pulse of 81, blood pressure is 109/65. NG output appears to be approximately a liter since early this morning. Urine output has been adequate. Output appears dark in color. General: The patient is an alert, thin-appearing elderly female, who is in some distress. She does complain of abdominal pain as well as pain from the NG tube. HEENT: Head is normocephalic. No scleral icterus is noted. Heart: Regular. Murmurs heard. Lungs: Clear. Abdomen: Mildly distended. It is soft, but there is a moderate to marked degree of tenderness to direct palpation more in the lower abdomen than the upper abdomen. There is some percussion tenderness in the lower abdomen as well. Extremities: Thin. There is no edema. IMPRESSION: 1. Small-bowel obstruction, this does not appear to be resolving. 2. History of coronary artery disease. RECOMMENDATIONS: I am concerned that with the lack of evidence of improvement in the patient's small-bowel obstruction and with her continued abdominal pain that she is at risk for developing intraabdominal complications and possibly bowel ischemia. I recommend that this patient be transferred to a tertiary care facility where close monitoring and possible surgical exploration can be performed. I have discussed this with the patient's primary physician and she indicated that she will proceed with transfer. COLE Wright MD /[id number] MTDD
== END 2017-05-09 17:24 | DRG 389 ==
LOC: LL.ED 14:57 → LL.MS 20:04 → UNDOADMIN 20:04 → LL.MS 05-09 01:09 → UNDODISIN 05-09 17:24
PROVIDERS: ADMIT Surgery; ATTEND Family Medicine
DX: K56.60 Unspecified intestinal obstruction (principal); K56.69 Other intestinal obstruction; N39.0 Urinary tract infection, site not specified; E86.0 Dehydration; R79.82 Elevated C-reactive protein (CRP); D72.825 Bandemia; D64.9 Anemia, unspecified; F41.8 Other specified anxiety disorders; I25.10 Atherosclerotic heart disease of native coronary artery without angina pectoris; R53.1 Weakness; E78.00 Pure hypercholesterolemia, unspecified; F17.200 Nicotine dependence, unspecified, uncomplicated; Z95.1 Presence of aortocoronary bypass graft; Z79.899 Other long term (current) drug therapy; Z88.8 Allergy status to other drugs, medicaments and biological substances
CPT/HCPCS: 36415; 74177; 80053; 81001; 82150; 83690; 85025; 85610; 85730; 86140; 96361; 96372; 96374; 96375; 96376; 99285; J1170 ×3; J2405; J7030; J7050; Q9967 ×2; 87086; 87088; 87186; 94761; A9270-GY; C9113; J0744; J1650; J1940

== ENCOUNTER 2017-05-20 23:21 | Inpatient (IN) | payer MEDICARE, OTHER, MEDICAID ==
[2017-05-21 00:11] LABS: CHLORIDE,CL 108 mmol/L (98-107); SODIUM,NA 141 mmol/L (136-145)
[2017-05-21] MEDS ORDERED: Iopamidol 755 Mg/ML 100 ML Bottle ONE (01:27)
[2017-05-21] MEDS ORDERED: Furosemide 40 MG/4 ML VIAL ONE (02:20)
[2017-05-21] MEDS ORDERED: Pantoprazole 40 MG Vial ONE (02:24)
[2017-05-21] MEDS ORDERED: Furosemide 40 MG/4 ML VIAL IVPUSH SCH (02:30)
[2017-05-21] MEDS ORDERED: Pantoprazole 40 MG Vial IVPUSH SCH ×2 (02:30→14:30)
[2017-05-21] MEDS ORDERED: Albuterol/Ipratropium 3.0-0.5 MG/3 ML Neb Soln ONE (02:38)
[2017-05-21] MEDS ORDERED: Piperacillin/Tazobactam 3.375 GM in Sodium Chloride 0.9% 100 ML IV SCH (03:00)
[2017-05-21] MEDS ORDERED: metroNIDAZOLE/Normal Saline 100 ML ONE (03:44)
[2017-05-21] MEDS ORDERED: metroNIDAZOLE/Normal Saline 500 MG in Premix Bag 1 BAG IV SCH (04:00)
[2017-05-21] MEDS ORDERED: Lactated Ringers 1,000 ML IV ONE (04:31)
[2017-05-21] MEDS ORDERED: Furosemide 40 MG/4 ML VIAL IVPUSH ONE (04:39)
[2017-05-21] MEDS ORDERED: D5 1/2 NS w/ 40 mEq/L KCl 1,000 ML IV SCH ×2 (04:45→17:30)
[2017-05-21] MEDS ORDERED: Albuterol 0.083% 2.5 MG/3 ML Neb Soln INH PRN (04:48)
[2017-05-21] MEDS ORDERED: Albuterol 0.083% 2.5 MG/3 ML Neb Soln NEB PRN (05:05)
[2017-05-21] MEDS: Budesonide 0.5 MG/2 ML Neb Susp NEB SCH ×3 (05:49→19:39)
[2017-05-21] MEDS: Albuterol/Ipratropium 3.0-0.5 MG/3 ML Neb Soln NEB SCH ×5 (05:57→19:14)
[2017-05-21] MEDS ORDERED: Albuterol/Ipratropium 3.0-0.5 MG/3 ML Neb Soln INH SCH (08:00)
[2017-05-21] MEDS ORDERED: Budesonide 0.5 MG/2 ML Neb Susp INH SCH (08:00)
--- NOTE | 2017-05-21 08:12 | HP ---
HISTORY OF PRESENT ILLNESS: The patient is an 82-year-old white female being admitted for treatment and evaluation of probable acute CVA, possible sepsis, CHF, etc., as below. Note that the patient was last seen at her normal baseline at about 2030 hours by the nursing staff at [facility]. She was once again evaluated at 2230 hours with the patient completely nonresponsive at that time. Her O2 saturation was only 84% upon arrival of the paramedics in the [facility] with subsequent application of O2 at 4 L/min by nasal cannula and improvement of the patient's O2 saturation to 92%. Note that only limited history was obtained from a subsequent verbal report/telephone consultation between our nursing staff and the [facility] staff at the [facility]. The patient was apparently completely unresponsive with no direct evidence of seizure activity, urine/stool incontinence, etc. She denied any chest pain or anginal type symptoms. Note that the patient was just admitted to their facility yesterday after a bowel resection secondary to small bowel obstruction on 05/11/2017. No apparent recent history of anginal complaints, leg swelling/pain, abdominal pain, chest pain, or anginal type symptoms, however incomplete history as above. No known complications from recent hospitalizations as above. The patient is unable to give a full history secondary to her nonresponsiveness. PREVIOUS MEDICAL HISTORY/CHRONIC ILLNESSES: Coronary artery disease with possible history of previous [place], however multiple surgeries as below. Hyperlipidemia. The patient does wear glasses. Previous history of GERD and peptic ulcer disease including GI bleed on 01/07/2017, small bowel obstruction on 05/08/2017 requiring surgery as below, moderate hiatal hernia by esophagogram as below, evidence of moderate mitral valve insufficiency and moderate left atrial enlargement by echocardiogram with additional grade 2 diastolic dysfunction, osteoarthritis and osteoporosis, CHF, previous history of MRSA from unknown location, dry eye syndrome, previous history of unknown type of colonic polyp, COPD and pulmonary fibrotic disease by chest x-ray, hyperlipidemia, hypothyroidism, peripheral neuropathy, and anxiety-depression disorder. Blood transfusions unknown, however note history of GI bleed as above. The patient did have a mid left clavicular fracture in 2005 and also history of renal artery stenosis by CT scan. Additional history of spinal stenosis particularly in the lumbar region by CT scan as below. PAST SURGICAL HISTORY: Bilateral cataract surgery at unknown dates, appendectomy, cholecystectomy, hysterectomy, unknown type of back surgery in L4 and L5 region, right-sided bunionectomy, last EGD and colonoscopy in 02/2015. The patient did have initial 4-vessel CABG in 1990 with repeat CABG procedure in 02/2005. Complete teeth extractions. Bilateral renal artery stent placements by today's CT scan ALLERGIES: Codeine. CURRENT MEDICATIONS: 1. Cymbalta 60 mg p.o. q.a.m. 2. Bacova 10/325 mg 1 tablet p.o. q.4 hours p.r.n. 3. Omeprazole 20 mg p.o. b.i.d. 4. Advair 250/50 mcg 1 inhalation b.i.d. 5. Wellbutrin XL 300 mg p.o. q.a.m. 6. Lidocaine patch b.i.d. p.r.n. 7. Cyclosporine solution 1 drop to both eyes b.i.d. 8. Albuterol inhaler 2 puffs q.6 hours p.r.n. 9. Folic acid 1 mg p.o. q.a.m. 10.Lasix 40 mg p.o. q.a.m. 11.Ferrous sulfate 325 mg p.o. q.a.m. 12.Spiriva 1 puff q.a.m. 13.Synthroid 75 mcg p.o. daily. 14.Elavil 50 mg p.o. at bedtime. 15.Clonazepam 0.5 mg p.o. at bedtime. 16.Soma 350 mg p.o. t.i.d. 17.Tums 1000 mg p.o. q.6 hours p.r.n. 18.Florastor 250 mg p.o. b.i.d. 19.Imdur 30 mg p.o. q.a.m. 20.Potassium chloride 20 mEq p.o. t.i.d. 21.Coreg 12.5 mg p.o. b.i.d. 22.Nitroglycerin sublingual tablet 0.4 mg p.r.n. 23.Bacova 10/325 mg p.o. q.i.d. 24.Carafate 1 g p.o. q.i.d. 25.Gemfibrozil 600 mg p.o. b.i.d. HABITS: Known history of tobacco use of at least 60 years with average use of couple of cigarettes per day. FAMILY HISTORY: Incomplete history secondary to the patient's unresponsiveness, however apparent previous history of diabetes mellitus. SOCIAL HISTORY: The patient is currently a resident of the [facility] with recent admission on 05/19/2017, otherwise unknown at this time. DIAGNOSTIC/SCREENING TEST HISTORY: Low-level cardiac stress test on 04/04/2005. Echocardiogram on 03/29/2015 showed an ejection fraction of 60% to 65%. CT scan of the C-spine and brain on 11/30/2015. CT of the lumbar spine on 12/16/2015. Swallowing study on 01/03/2017. CT of the abdomen and pelvis last on 05/08/2017 with previous evaluation on 01/05/2017. Esophagram on 01/17/2017. REVIEW OF SYSTEMS: Unable to completely obtain, however, otherwise as per history of present illness as above. OBJECTIVE: VITAL SIGNS: On arrival showed blood pressure of 94/51 with highest blood pressure of 107/46 and blood pressure of 77/40 on admission. Last blood pressure of 77/40, pulse 62, respiratory rate 14, temperature 98.2 degrees, and O2 saturation 90% to 97% on 4 L/min by nasal cannula. X-RAYS: CT of the head was negative for acute CVA with CTA of the chest using PE protocol negative for PE, however moderate right upper lobe pulmonary consolidation with telephone consultation with Radiology Department at [facility] at 0111 hours. Chest x-ray, portable, does show evidence of moderate right upper lobe consolidation with evidence of COPD and pulmonary fibrotic changes and probable moderate centralized CHF and/or pulmonary hypertension. No pneumothorax. Note status post CABG. No free air. Abdominal flat x-ray showed large amounts of bowel gas with multiple surgical clips from recent abdominal surgery. vehicle monitor technician showed mostly normal sinus rhythm with occasional PACs with average heart rate in the 60s to 70s. No other significant cardiac arrhythmia. EKG showed mild sinus arrhythmia with a heart rate of 63, KS interval of 0.18 seconds, and QRS interval of 0.11 seconds representing an incomplete right bundle branch block. A neutral cardiac axis was present. Diffuse biphasic P- waves were noted with T-wave inversion in leads V1 through V4 with no EKG available for comparison. PHYSICAL EXAMINATION: HEENT: Normal with exception of complete dentures uppers and lowers. Eyes were PERRLA; however, extraocular movements could not be evaluated secondary to the patient's nonresponsiveness. Fundi normal. NECK: Showed mild bilateral carotid bruits versus transmitted heart sounds. No lymphadenopathy, thyromegaly, jugular vein distention, and hepatojugular reflux. LUNGS: Showed mild mostly bilateral basilar rales with some rhonchi throughout. HEART: Showed some mild sinus arrhythmia with PACs as above. 1/6 ANJEL of the mitral and aortic valves. No S3, S4, rubs, or clicks. ABDOMEN: Showed increased bowel sounds, however not high pitched in nature. Mild borderline distention. No rebound. No appreciable palpation pain; however, note nonresponsiveness, lower abdominal midline vertical incision from recent surgery with mild surrounding erythema, but no drainage from the surgical site. Clif[place] in place. EXTREMITIES: Showed no pedal edema. Some pallor. 2/4 peripheral pulses. Negative Homans sign. NEUROLOGICAL: The patient is nonresponsive and essentially comatose. No direct corneal reflex. Positive right-sided Babinski. BREASTS, RECTAL, AND GENITOURINARY: Not conducted. LABORATORY DATA: CBC was normal with exception of decreased hemoglobin of 9.6 and hematocrit of 28.9% with somewhat elevated platelets of 481. WBCs normal at 9.97, although elevated neutrophils at 8.10, i.e., 81.3%. A comprehensive metabolic panel shows some decreased potassium of 3.1, random glucose of 159 with a spot Accu-Chek by paramedics of 126 mg% by their history. Otherwise, sodium 141, CO2 of 24.2, BUN 13, and creatinine of 0.90. Calcium mildly decreased to 8.4. Total protein decreased to 5.6 with albumin decreased to 2.5. CK 49, CK-MB 1.40 with artifactually elevated cardiac index of 2.9%, and troponin I high normal at 0.037 with moderately elevated BNP of 1133. D-dimer is significantly elevated at 1350. INR 1.1 and PTT 28.3. Prolactin level pending. ASSESSMENT: 1. Probable cerebrovascular accident by clinical exam. 2. Comatose condition. 3. D-dimer elevation. 4. Possible sepsis with aspiration pneumonia. 5. Premature atrial contractions. 6. Comfort care. 7. Known coronary artery disease with anterior wall cardiac ischemia and status post coronary artery bypass grafting. 8. Congestive heart failure. 9. Hypothyroidism. 10.Ileus with recent small bowel obstruction and bowel resection. 11.Chronic obstructive pulmonary disease and pulmonary fibrosis. 12.Anxiety-depression disorder. 13.Osteoarthritis with spinal stenosis. 14.Hypotension. 15.Hypokalemia. PLAN: Various therapeutic options were given to the patient's daughter, including admission to this facility vs. return of the [facility] and continuation of comfort care. Per their request, we will initiate a trial of antibiotic therapy. They are aware of her extremely poor prognosis with the patient possibly expiring within the next 24 hours. The patient will be given a 1 L bolus of lactated Ringer's secondary to her hypotension despite her CHF. One dose of IV Lasix was given shortly on admission. The patient was also immediately started on IV Zosyn and IV Flagyl therapy. Blood cultures x2 have been collected. Shoe Shanker consultation for initiation of probable hospice. Continue IV Lasix therapy and IV fluids. Note that the patient will have potassium supplementation by means of D5, one- half normal, 40 mEq KCl per liter after lactated Ringer's bolus as above. May need to initiate potassium chloride IV infusion. The patient is comatose and unable to take any oral medications including her previous home medications. Initiate triple nebulizer therapy, although she will probably not respond well to this secondary to her comatose condition. Prognosis is extremely poor as above. No further cardiac workup, transfer, echocardiogram, venous Doppler studies, etc., secondary to comfort care status. The patient's daughter and son-in-law are in agreement with this treatment plan. Repeat blood work and EKG in the a.m. Emotional support provided. COLE Barton MD /[id number] TOMER
[2017-05-21] MEDS: Piperacillin/Tazobactam 3.375 GM in Sodium Chloride 0.9% 100 ML IV SCH ×3 (09:34→20:43)
[2017-05-21] MEDS: Sodium Chloride 0.9% 10 ML Syringe IV PRN ×2 (09:34→14:50)
[2017-05-21] MEDS: Furosemide 40 MG/4 ML VIAL IVPUSH SCH ×2 (09:34→18:14)
--- NOTE | 2017-05-21 10:07 | PCM.SN ---
- Free Text/Narrative Note: Repeat exam early this morning with relatively stable findings, although some borderline improvement of her diffuse rales. Patient remains unresponsive. EKG today shows resolution of previous T-wave inversions in leads V2 and V3 with persistent T-wave inversion in lead V1 with possible improving anterior wall cardiac ischemia. Official reports of CT scan of the head and CTA of the chest have been received and reviewed this morning. Her hemoglobin is relatively stable at 9.9 today with improvement of her previous thrombocytosis. Potassium level is improved to 3.2, however we will initiate IV potassium chloride infusions. The patient is still unable to take any medications orally. Persistent hypoxia with O2 saturation of 87% this morning despite 100% O2 by nonrebreather mask. Troponin I is somewhat improved. Her prognosis is extremely poor with decreased blood pressure of 59/35 this morning. Family does not wish to have any further aggressive therapy, including IV dopamine, etc. Note the patient is still afebrile, however cannot rule out sepsis secondary to her right upper lobe aspiration pneumonia. Add IV vancomycin secondary to her previous history of MRSA. Her 3 daughters were counseled during today's hospital rounds, and they are aware that the patient may within the next 24 hours. youth services librarian consultation later this morning for hospice care. Probable transfer back to the halfway within the next 1-2 days, if patient survives. Emotional support was provided. Repeat blood work, etc. in the a.m. Continue comfort care
[2017-05-21] MEDS ORDERED: Sodium Chloride 0.9% 1,000 ML IV SCH (10:30)
[2017-05-21] MEDS: Potassium Chloride 10 MEQ in Premix Bag 1 BAG IV SCH ×7 (14:56→21:54)
[2017-05-21] MEDS: metroNIDAZOLE/Normal Saline 500 MG in Premix Bag 1 BAG IV SCH ×2 (14:58→19:19)
[2017-05-21] MEDS: Sodium Chloride 0.9% 10 ML Syringe FLUSH PRN ×5 (16:29→21:00)
[2017-05-21] MEDS ORDERED: Ondansetron 4 MG/2 ML SDV IVPUSH PRN (18:56)
[2017-05-21] MEDS: Morphine 2 MG/ML Syringe IVPUSH PRN ×2 (19:10→21:00)
[2017-05-21] MEDS ORDERED: Menthol/Methyl Salicylate 85 GM Tube TOP PRN (19:51)
[2017-05-21] MEDS ORDERED: Menthol/Methyl Salicylate 85 GM Tube ONE (19:51)
[2017-05-21] MEDS ORDERED: Acetaminophen 325 MG Tab PO PRN (20:17)
[2017-05-21] MEDS ORDERED: Acetaminophen 650 MG Supp RECTAL PRN ×2 (20:18→20:20)
[2017-05-21] MEDS ORDERED: fentaNYL 100 MCG/2 ML SDV IVPUSH PRN (21:33)
[2017-05-21] MEDS ORDERED: LORazepam 2 MG/ML MDV IVPUSH PRN (21:35)
[2017-05-21] MEDS ORDERED: LORazepam 1 MG Tab PO SCH (21:45)
[2017-05-21 22:26] VITALS: BP 65/48
--- NOTE | 2017-05-22 11:06 | PCM.DCSUM1 ---
Discharge Summary - Hospital Course HPI Initial Comments: See Emergency room note/admission H&P Brief History: See emergency room note/admission H&P - Discharge Data Discharge Date: 05/21/17 Discharge Disposition: 20 Preliminary Cause of *Q: Other_Special Instruction (CVA, CHF) Condition: Critical - Discharge Diagnosis/Problem(s) (1) CVA (cerebral vascular accident) SNOMED Code(s): 544730601 ICD Code: I63.9 - CEREBRAL INFARCTION, UNSPECIFIED Status: Acute Priority : High Onset Date: ~05/20/17 Problem Details: Note positive Babinski's during initial evaluation in the emergency room with clinical evidence of acute CVA and secondary comatous condition despite negative CT scan of the head results in the emergency room. Various therapeutic options were discussed with multiple family members throughout this hospitalization with initial trial of aggressive IV antibiotic therapy secondary to possibility of concomitant sepsis from aspiration pneumonia. Note that the patient was a no code with no further transfer, neurology/cardiology consultation, etc. per family's request. They were given an option initially to transfer the patient back to [facility] for comfort care and her anticipated . Emotional support was provided on multiple occasions throughout this hospitalization and all family members are aware that the patient would likely pass in the near future. No heparin, etc. therapy was given secondary to recent abdominal surgery him anemia, and comfort care request as above. The patient did very briefly respond to multiple aggressive measures as above and below and was somewhat awake, however uncomfortable with IV morphine and subsequent IV fentanyl and oral/IV Ativan therapy initiated prior to patient's demise Qualifiers: CVA mechanism: embolism Precerebral and cerebral artery: unspecified cerebral artery Qualified Code(s): I63.40 - Cerebral infarction due to embolism of unspecified cerebral artery (2) Aspiration pneumonia SNOMED Code(s): 091179659 ICD Code: J69.0 - PNEUMONITIS DUE TO INHALATION OF FOOD AND VOMIT Status: Acute Priority: High Onset Date: 05/20/17 Problem Details: Probable aspiration pneumonia with aggressive therapy including IV Zosyn, IV vancomycin, and IV Flagyl with patient having a previous history of MRSA. Aggressive nebulizer treatments were also given Qualifiers: Aspiration pneumonia type: due to regurgitated food Laterality: right Lung location: upper lobe of lung Qualified Code(s): J69.0 - Pneumonitis due to inhalation of food and vomit (3) CHF (congestive heart failure) SNOMED Code(s): 36343912 ICD Code: I50.9 - HEART FAILURE, UNSPECIFIED Status: Acute Priority: High Onset Date: 05/20/17 Problem Details: Comfort care only with the family requesting no further aggressive therapy be conducted including IV dopamine, etc. The patient did remain on telemetry. Aggressive IV Lasix therapy was also initiated with no improvement and limited urine output during this hospitalization Qualifiers: Congestive heart failure type: unspecified congestive heart failure type Congestive heart failure chronicity: acute on chronic Qualified Code(s): I50.9 - Heart failure, unspecified (4) Need for comfort care SNOMED Code(s): 940912501 ICD Code: [id number] - Status: Acute Priority: High Onset Date: 05/20/17 Problem Details: As above (5) Ileus SNOMED Code(s): 302963774 ICD Code: K56.7 - ILEUS, UNSPECIFIED Status: Acute Priority: High Onset Date: 05/20/17 Problem Details: Evidence of persistent probable moderate abdominal ileus with status post recent bowel resection secondary to previous ileus as per emergency room note. Note aggressive IV antibiotic therapy as above (6) COPD (chronic obstructive pulmonary disease) SNOMED Code(s): 32832089 ICD Code: J44.9 - CHRONIC OBSTRUCTIVE PULMONARY DISEASE, UNSPECIFIED Status : Acute Priority: High Problem Details: Aggressive therapy as above Qualifiers: COPD type: COPD with acute lower respiratory infection Qualified Code(s): J44.0 - Chronic obstructive pulmonary disease with acute lower respiratory infection (7) Hypokalemia SNOMED Code(s): 31339066 ICD Code: E87.6 - HYPOKALEMIA Status: Acute Priority: High Onset Date: 05/22/17 Problem Details: Aggressive therapy with IV potassium chloride supplementation (8) Coronary artery disease SNOMED Code(s): 01876573 ICD Code: I25.10 - ATHSCL HEART DISEASE OF [place] CORONARY ARTERY W/O ANG PCTRS Status: Chronic Priority: High Problem Details: Anterior wall cardiac ischemia by EKG on admission with improved EKG findings as below prior to her . Comfort care as above Qualifiers: Coronary Disease-Associated Artery/Lesion type: [place] artery [place] vs. transplanted heart: [place] heart Associated angina: without angina Qualified Code(s): I25.10 - Atherosclerotic heart disease of [place] coronary artery without angina pectoris - Patient Summary/Data Operative Procedure(s) Performed: None Complications: Patient as suspected Consults: Consultations 05/21/17 05:01 Consult to Case Management [CONS] Routine Labs Pending at D/C: None Recommended Follow-up Testing/Procedures: None Planned Operative Procedure(s) after DC: None Hospital Course: Aggressive treatment of patient secondary to multiple illnesses as above. Patient did as initially expected on admission - Discharge Plan Home Medications: Home Meds Fluticasone/Salmeterol [Advair 250-50] 1 puff INH BID 02/26/15 [History] Gemfibrozil 600 mg PO BID 02/26/15 [History] Hydrocodone/Acetaminophen [Lortab 10-325 mg Tablet] 1 each PO DAILY PRN [History] Isosorbide Mononitrate [Imdur] 30 mg PO QPM 02/26/15 [History] Levothyroxine 75 mcg PO ACBREAKFAST 02/26/15 [History] Sucralfate [Carafate] 1 gm PO QID 02/26/15 [History] Tiotropium [Spiriva HandiHaler] 18 mcg INH QAM@0700 02/26/15 [History] Albuterol Sulfate [Albuterol Sulfate HFA] 2 puff INH Q6HR 04/18/15 [History] Amitriptyline [Elavil] 50 mg PO BEDTIME 04/18/15 [History] Furosemide [Lasix] 40 mg PO DAILY 04/18/15 [History] Hydrocodone/Acetaminophen [[place] 10-325] 1 tab PO QID 04/18/15 [History] cycloSPORINE [Restasis] 1 drop EYEBOTH BID 04/18/15 [History] Acetaminophen 650 mg PO Q12HR PRN 01/05/17 [History] Calcium Carbonate [Tums] 1,000 mg PO Q6HR PRN 01/05/17 [History] Carvedilol [Coreg] 12.5 mg PO BIDM 01/05/17 [History] DULoxetine HCl [Cymbalta] 60 mg PO DAILY 01/05/17 [History] Ferrous Sulfate 325 mg PO DAILY 01/05/17 [History] Gabapentin [Neurontin] 300 mg PO TID 01/05/17 [History] Lidocaine 1 each TP BID PRN 01/05/17 [History] Nitroglycerin 0.4 mg SL ASDIRECTED PRN 01/05/17 [History] buPROPion [Wellbutrin XL] 300 mg PO DAILY 01/05/17 [History] clonazePAM [Klonopin] 0.5 mg PO BEDTIME 01/05/17 [History] Non-Formulary Medication [NF Drug] 250 mg PO BID 01/07/17 [History] Folic Acid 1 mg PO DAILY #30 tablet 01/10/17 [Rx] Carisoprodol [Soma] 350 mg PO TID 05/08/17 [History] Omeprazole 20 mg PO BID 05/08/17 [History] Potassium Chloride 20 meq PO TIDMEALS 05/08/17 [History] Forms: ED Department Discharge Referrals: Sheets-La Mccollum MD [Primary Care Provider] - - Discharge Summary/Plan Comment DC Time >30 min.: Yes (Family counseling) Discharge Summary/Plan Comment: As above. Patient's body released to mortuary of family's request - General Info Date of Service: 05/21/17 Admission Dx/Problem (Free Text: As above Subjective Update: As below Functional Status: Reports: Pain Controlled - Review of Systems General: Reports: Other (comatose) Pulmonary: Reports: Shortness of Breath Cardiovascular: Denies: Chest Pain Gastrointestinal: Reports: Constipation (Ileus). Denies: Diarrhea Genitourinary: Reports: Incontinence Musculoskeletal: Reports: Other (Comatose) Neurological: Reports: Other (Comatose) Psychiatric: Reports: Agitation (Brief prior to her ) - Patient Data Vitals - Most Recent: Last Vital Signs Temp 36.6 C 05/21/17 21:30 Pulse 86 05/21/17 21:30 Resp 20 05/21/17 21:30 BP 65/48 L 05/21/17 21:30 Pulse Ox 77 L 05/21/17 21:30 Vital Signs (72 hours) 05/21/17 05/21/17 05/21/17 01:45 02:00 04:00 Temperature [ Axillary] Temperature [ 36.8 C Temporal] Pulse, 65 76 Peripheral [ Pulse Oximetry] Pulse, Peripheral [ Radial] Respiratory 17 20 Rate Blood Pressure [Left Upper Arm ] Blood Pressure 76/55 L 81/35 L [Right Upper Arm] O2 Sat by Pulse 76 L 65 L Oximetry O2 Sat by Pulse 65 L Oximetry [Non- Rebreather Mask ] 05/21/17 05/21/17 05/21/17 06:43 08:00 09:44 Temperature [ 36.7 C Axillary] Temperature [ 36.7 C Temporal] Pulse, 62 84 85 Peripheral [ Pulse Oximetry] Pulse, Peripheral [ Radial] Respiratory 18 20 22 H Rate Blood Pressure [Left Upper Arm ] Blood Pressure 66/45 L 59/35 L 59/37 L [Right Upper Arm] O2 Sat by Pulse 98 87 L 85 L Oximetry O2 Sat by Pulse 87 L Oximetry [Non- Rebreather Mask ] 05/21/17 05/21/17 05/21/17 12:00 14:00 18:00 Temperature [ 37.0 C 36.6 C 37.1 C Axillary] Temperature [ Temporal] Pulse, 85 86 Peripheral [ Pulse Oximetry] Pulse, 92 Peripheral [ Radial] Respiratory 24 H 23 H 20 Rate Blood Pressure [Left Upper Arm ] Blood Pressure 52/40 L 64/44 L 87/50 L [Right Upper Arm] O2 Sat by Pulse 86 L 86 L 82 L Oximetry O2 Sat by Pulse Oximetry [Non- Rebreather Mask ] 05/21/17 05/21/17 19:35 21:30 Temperature [ 36.9 C 36.6 C Axillary] Temperature [ Temporal] Pulse, Peripheral [ Pulse Oximetry] Pulse, 88 86 Peripheral [ Radial] Respiratory 20 20 Rate Blood Pressure 65/48 L [Left Upper Arm ] Blood Pressure [Right Upper Arm] O2 Sat by Pulse 80 L 77 L Oximetry O2 Sat by Pulse Oximetry [Non- Rebreather Mask ] Weight - Most Recent: 44.271 kg I&O - Last 24 hours: Intake & Output 05/21/17 05/22/17 05/22/17 22:59 06:59 14:59 Intake Total 1632 950 Output Total 300 Balance 1632 650 Imaging Impressions - Last 24 hrs: classroom monitor did show normal sinus rhythm in the 70s to 80s with subsequent bradycardia and asystole prior to CT of the head without contrast on 05/21/17 did not show any evidence of acute CVA with stable previous chronic lacunar infarct CTA of the chest using PE protocol on 05/21/17 showed no evidence of PE, however probability of right upper lobe aspiration pneumonia Abdominal x-ray, one view, shows evidence of ileus with bilateral vascular stents from previous renal artery stenosis Chest x-ray, portable, shows evidence of right upper lobe moderate pulmonary infiltrates Lab Results - Last 24 hrs: Laboratory Tests 05/20/17 05/20/17 05/20/17 Range/Units 23:30 23:30 23:30 WBC 10.0 (4.0-10.2) K/uL RBC 2.99 L (3.77-5.09) M/uL Hgb 9.6 L D (11.7-15.5) g/dL Hct 28.9 L (34.0-46.0) % MCV 96.7 (84.0-98.0) fL MCH 32.1 (28.2-33.3) pg MCHC 33.2 (31.7-36.0) g/dL RDW 13.6 (11.2-14.1) % Plt Count 481 H (150-350) K/uL Neut % (Auto) 81.3 H (45.0-80.0) % Lymph % (Auto) 10.7 (10.0-50.0) % Summers % (Auto) 7.0 (2.0-14.0) % Eos % (Auto) 1.0 (0.0-5.0) % Baso % (Auto) 0.0 (0.0-2.0) % Neut # (Auto) 8.10 H (1.40-7.00) K/uL Lymph # (Auto) 1.07 (0.50-3.50) K/uL Summers # (Auto) 0.70 (0.00-1.00) K/uL Eos # (Auto) 0.10 (0.00-0.50) K/uL Baso # (Auto) 0.00 (0.00-0.20) K/uL PT (9.8-11.7) SEC INR APTT (23.5-30.0) SEC D-Dimer, Quantitative 1350 H (0-400) ng/mL Sodium 141 (136-145) mmol/L Potassium 3.1 L (3.5-5.1) mmol/L Chloride 108 H (98-107) mmol/L Carbon Dioxide 24.2 (21.0-32.0) mmol/L BUN 13 (7-18) mg/dL Creatinine 0.90 (0.51-1.17) mg/dL Est Cr Clr Drug Dosing TNP Estimated GFR (MDRD) 60 mL/min Glucose 159 H (74-106) mg/dL Calcium 8.4 L (8.5-10.1) mg/dL Total Bilirubin 0.2 (0.2-1.0) mg/dL AST 18 (15-37) U/L ALT 19 (12-78) U/L Alkaline Phosphatase 92 (46-116) IU/L Creatine Kinase 49 (26-308) U/L Creatine Kinase Index 2.9 H (0.0-2.5) % CK-MB (CK-2) 1.40 (0.00-3.60) ng/mL Troponin I 0.037 (0.000-0.056) ng/mL NT-Pro-B Natriuret Pep 1133 H (0-125) pg/mL Total Protein 5.6 L (6.4-8.2) g/dL Albumin 2.5 L (3.4-5.0) g/dL Prolactin ng/mL 05/20/17 05/20/17 05/21/17 Range/Units 23:30 23:30 07:10 WBC 7.7 (4.0-10.2) K/uL RBC 3.10 L (3.77-5.09) M/uL Hgb 9.9 L (11.7-15.5) g/dL Hct 30.2 L (34.0-46.0) % MCV 97.4 (84.0-98.0) fL MCH 31.9 (28.2-33.3) pg MCHC 32.8 (31.7-36.0) g/dL RDW 13.7 (11.2-14.1) % Plt Count 386 H D (150-350) K/uL Neut % (Auto) 86.5 H (45.0-80.0) % Lymph % (Auto) 7.8 L (10.0-50.0) % Summers % (Auto) 5.5 (2.0-14.0) % Eos % (Auto) 0.1 (0.0-5.0) % Baso % (Auto) 0.1 (0.0-2.0) % Neut # (Auto) 6.63 (1.40-7.00) K/uL Lymph # (Auto) 0.60 (0.50-3.50) K/uL Summers # (Auto) 0.42 (0.00-1.00) K/uL Eos # (Auto) 0.01 (0.00-0.50) K/uL Baso # (Auto) 0.01 (0.00-0.20) K/uL PT 11.6 (9.8-11.7) SEC INR 1.1 APTT 28.3 (23.5-30.0) SEC D-Dimer, Quantitative (0-400) ng/mL Sodium (136-145) mmol/L Potassium (3.5-5.1) mmol/L Chloride (98-107) mmol/L Carbon Dioxide (21.0-32.0) mmol/L BUN (7-18) mg/dL Creatinine (0.51-1.17) mg/dL Est Cr Clr Drug Dosing Estimated GFR (MDRD) mL/min Glucose (74-106) mg/dL Calcium (8.5-10.1) mg/dL Total Bilirubin (0.2-1.0) mg/dL AST (15-37) U/L ALT (12-78) U/L Alkaline Phosphatase (46-116) IU/L Creatine Kinase (26-308) U/L Creatine Kinase Index (0.0-2.5) % CK-MB (CK-2) (0.00-3.60) ng/mL Troponin I (0.000-0.056) ng/mL NT-Pro-B Natriuret Pep (0-125) pg/mL Total Protein (6.4-8.2) g/dL Albumin (3.4-5.0) g/dL Prolactin 33.8 ng/mL 05/21/17 Range/Units 07:10 WBC (4.0-10.2) K/uL RBC (3.77-5.09) M/uL Hgb (11.7-15.5) g/dL Hct (34.0-46.0) % MCV (84.0-98.0) fL MCH (28.2-33.3) pg MCHC (31.7-36.0) g/dL RDW (11.2-14.1) % Plt Count (150-350) K/uL Neut % (Auto) (45.0-80.0) % Lymph % (Auto) (10.0-50.0) % [place] % (Auto) (2.0-14.0) % Eos % (Auto) (0.0-5.0) % Baso % (Auto) (0.0-2.0) % Neut # (Auto) (1.40-7.00) K/uL Lymph # (Auto) (0.50-3.50) K/uL [place] # (Auto) (0.00-1.00) K/uL Eos # (Auto) (0.00-0.50) K/uL Baso # (Auto) (0.00-0.20) K/uL PT (9.8-11.7) SEC INR APTT (23.5-30.0) SEC D-Dimer, Quantitative (0-400) ng/mL Sodium 141 (136-145) mmol/L Potassium 3.2 L (3.5-5.1) mmol/L Chloride 109 H (98-107) mmol/L Carbon Dioxide 20.6 L (21.0-32.0) mmol/L BUN 16 (7-18) mg/dL Creatinine 0.95 (0.51-1.17) mg/dL Est Cr Clr Drug Dosing 30.81 Estimated GFR (MDRD) 56 mL/min Glucose 127 H (74-106) mg/dL Calcium 8.0 L (8.5-10.1) mg/dL Total Bilirubin 0.2 (0.2-1.0) mg/dL AST 16 (15-37) U/L ALT 15 (12-78) U/L Alkaline Phosphatase 69 (46-116) IU/L Creatine Kinase 41 (26-308) U/L Creatine Kinase Index 2.0 (0.0-2.5) % CK-MB (CK-2) 0.80 (0.00-3.60) ng/mL Troponin I 0.030 (0.000-0.056) ng/mL NT-Pro-B Natriuret Pep (0-125) pg/mL Total Protein 4.7 L (6.4-8.2) g/dL Albumin 1.9 L (3.4-5.0) g/dL Prolactin ng/mL JOSE Results - Last 24 hrs: Microbiology 05/21/17 06:25 Stool Occult Blood (JOSE) - Final Stool / Feces Hemoccult negative Med Orders - Current: Current Medications Discontinued Medications Acetaminophen (Tylenol) 650 mg PO Q3H PRN PRN Reason: Pain/Fever Last Admin: 05/21/17 20:39 Dose: 650 mg Acetaminophen (Tylenol) 650 mg RECTAL Q4H PRN PRN Reason: Pain/Fever Acetaminophen (Tylenol) 650 mg RECTAL Q3H PRN PRN Reason: Pain/Fever Albuterol (Proventil Neb Soln) 2.5 mg INH Q2H PRN PRN Reason: Dyspnea Albuterol (Proventil Neb Soln) 2.5 mg NEB Q2H PRN PRN Reason: Shortness of Breath Albuterol/Ipratropium (Duoneb 3.0-0.5 Mg/3 Ml) Confirm Administered Dose 3 ml .ROUTE .STK-MED ONE Stop: 05/21/17 02:39 Last Admin: 05/21/17 02:41 Dose: 3 ml Albuterol/Ipratropium (Duoneb 3.0-0.5 Mg/3 Ml) 3 ml INH Q4HRRT ROSITA Albuterol/Ipratropium (Duoneb 3.0-0.5 Mg/3 Ml) 3 ml NEB Q4HRRT ROSITA Last Admin: 05/21/17 19:14 Dose: 3 ml Budesonide (Pulmicort) 0.5 mg INH BIDRT ROSITA Budesonide (Pulmicort) 0.5 mg NEB BIDRT ROSITA Last Admin: 05/21/17 19:39 Dose: 0.5 mg Fentanyl (Sublimaze) 50 mcg IVPUSH Q4H PRN PRN Reason: Pain (severe 7-10) Last Admin: 05/21/17 21:47 Dose: 50 mcg Furosemide (Lasix) Confirm Administered Dose 80 mg .ROUTE .STK-MED ONE Stop: 05/21/17 02:21 Last Admin: 05/21/17 02:30 Dose: 60 mg Furosemide (Lasix) 60 mg IVPUSH ONETIME ONE Stop: 05/21/17 04:40 Last Admin: 05/21/17 05:13 Dose: Not Given Furosemide (Lasix) 40 mg IVPUSH Q8H [facility] Last Admin: 05/21/17 05:48 Dose: Not Given Furosemide (Lasix) 40 mg IVPUSH Q8H [facility] Last Admin: 05/21/17 18:14 Dose: 40 mg Metronidazole (Flagyl 500 Mg In Ns 100 Ml) Confirm Administered Dose 100 mls @ as directed .ROUTE .STK-MED ONE Stop: 05/21/17 03:45 Last Admin: 05/21/17 03:50 Dose: 500 mg Lactated Ringer's (Ringers, Lactated) 1,000 mls @ 999 mls/hr IV .BOLUS ONE Stop: 05/21/17 05:31 Last Admin: 05/21/17 05:11 Dose: 999 mls/hr Potassium Chloride/Dextrose/Sod Cl (D5 1/2 Ns W/ 40 Meq/L Kcl) 1,000 mls @ 80 mls/hr IV ASDIRECTED [facility] Last Admin: 05/21/17 04:48 Dose: 80 mls/hr Piperacillin Sod/Tazobactam (Sod 3.375 gm/ Sodium Chloride) 100 mls @ 200 mls/ hr IV Q6H [facility] Last Admin: 05/21/17 05:48 Dose: Not Given Metronidazole 500 mg/ Premix 100 mls @ 100 mls/hr IV Q8H [facility] Last Admin: 05/21/17 05:48 Dose: Not Given Metronidazole 500 mg/ Premix 100 mls @ 100 mls/hr IV Q8H [facility] Last Admin: 05/21/17 19:19 Dose: 100 mls/hr Piperacillin Sod/Tazobactam (Sod 3.375 gm/ Sodium Chloride) 100 mls @ 200 mls/ hr IV Q6H [facility] Last Admin: 05/21/17 20:43 Dose: 200 mls/hr Vancomycin HCl 1 gm/ Dextrose/ (Water) 250 mls @ 165 mls/hr IV Q24H [facility] Last Admin: 05/21/17 10:45 Dose: Not Given Potassium Chloride 10 meq/ (Premix) 50 mls @ 50 mls/hr IV Q1H [facility] Stop: 05/21/17 16:14 Last Admin: 05/21/17 14:57 Dose: Not Given Sodium Chloride (Normal Saline) 1,000 mls @ 100 mls/hr IV ASDIRECTED [facility] Stop: 05/21/17 17:30 Last Admin: 05/21/17 17:23 Dose: 100 mls/hr Potassium Chloride/Dextrose/Sod Cl (D5 1/2 Ns W/ 40 Meq/L Kcl) 1,000 mls @ 80 mls/hr IV ASDIRECTED [facility] Vancomycin HCl 1 gm/ Dextrose/ (Water) 250 mls @ 165 mls/hr IV ONETIME ONE Stop: 05/21/17 12:13 Last Admin: 05/21/17 14:56 Dose: Not Given Vancomycin HCl 0.75 gm/ (Dextrose/Water) 250 mls @ 215 mls/hr IV Q24H [facility] Potassium Chloride 10 meq/ (Premix) 50 mls @ 50 mls/hr IV Q1H [facility] Stop: 05/21/17 22:14 Last Admin: 05/21/17 21:54 Dose: 50 mls/hr Vancomycin HCl 1 gm/ Dextrose/ (Water) 250 mls @ 165 mls/hr IV ONETIME ONE Stop: 05/21/17 17:45 Last Admin: 05/21/17 16:24 Dose: 165 mls/hr Iopamidol (Isovue-370 (76%)) Confirm Administered Dose 100 ml .ROUTE .STK-MED ONE Stop: 05/21/17 01:28 Last Admin: 05/21/17 05:08 Dose: Not Given Lorazepam (Ativan) 1 mg PO QID [facility] Last Admin: 05/21/17 21:47 Dose: 1 mg Lorazepam (Ativan) 2 mg IVPUSH Q4H PRN PRN Reason: Agitation Methyl Salicylate (Icy Hot Cream) Confirm Administered Dose 85 gm .ROUTE .STK- MED ONE Stop: 05/21/17 19:52 Last Admin: 05/21/17 20:43 Dose: Not Given Methyl Salicylate (Icy Hot Cream) 1 gm TOP ASDIRECTED PRN PRN Reason: Muscle Aches Last Admin: 05/21/17 19:55 Dose: 1 applic Morphine Sulfate (Morphine) 2 mg IVPUSH Q2H PRN PRN Reason: Pain Last Admin: 05/21/17 21:00 Dose: 2 mg Ondansetron HCl (Zofran) 4 mg IVPUSH Q6H PRN PRN Reason: Nausea/Vomiting Last Admin: 05/21/17 19:10 Dose: 4 mg Pantoprazole Sodium (Protonix Iv) Confirm Administered Dose 40 mg .ROUTE .STK -MED ONE Stop: 05/21/17 02:25 Last Admin: 05/21/17 02:28 Dose: 40 mg Pantoprazole Sodium (Protonix Iv) 40 mg IVPUSH Q12H [facility] Last Admin: 05/21/17 05:48 Dose: Not Given Pantoprazole Sodium (Protonix Iv) 40 mg IVPUSH Q12H [facility] Last Admin: 05/21/17 14:49 Dose: 40 mg Piperacillin Sod/Tazobactam Sod (Zosyn) Confirm Administered Dose 3.375 gm .ROUTE .STK-MED ONE Stop: 05/21/17 02:20 Last Admin: 05/21/17 02:45 Dose: 3.375 gm Sodium Chloride (Saline Flush) 10 ml IV BID PRN PRN Reason: IV Use Last Admin: 05/21/17 14:50 Dose: 10 ml Sodium Chloride (Saline Flush) 10 ml FLUSH ASDIRECTED PRN PRN Reason: Keep Vein Open Last Admin: 05/21/17 21:00 Dose: 10 ml - Exam Quality Assessment: Reports: Supplemental Oxygen, Urine Catheter, DVT Prophylaxis. Denies: Restraints General: Reports: Other (Comatose) HEENT: Reports: Other (Nonreactive) Lungs: Reports: Other (No spontaneous respiration) Cardiovascular: Reports: Other (No pulse or heartbeat) Neurological: Reports: Other (No neurological response) EKG INTERPRETATION EKG Date: 05/21/17 Time: 07:12 Rhythm: NSR Rate (Beats/Min): 83 [place]: Normal (Neutral) P-Wave: Present (Mild diffuse biphasic P waves with poor R-wave progression in the anterior leads) QRS: Wide (QRS interval of 0.10 seconds representing repolarization changes or cysts incomplete right bundle branch block) ST-T: Other (T-wave inversion in lead V1 with resolution of previous T-wave inversions in leads V2 through V4) QT: Normal MS/PQ Interval: 0.18 seconds Comparison: Change From Previous EKG (Improved anterior wall cardiac ischemia from 05/20/17) EKG Interpretation Comments: 1. Improved anterior wall cardiac ischemia 2. Borderline incomplete right bundle branch block *Q Meaningful Use (DIS) - VTE *Q VTE Criteria *Q: - Stroke *Q Stroke Criteria *Q: - AMI *Q AMI Criteria *Q:
[2017-05-22] MEDS ORDERED: VANCOMYCIN IV SCH ×2 (16:00)
[2017-05-22] MEDS ORDERED: DEXTROSE 5% IV SCH ×2 (16:00)
[2017-05-22] MEDS ORDERED: WATER IV SCH ×2 (16:00)
== END 2017-05-22 00:40 | disposition expired | DRG 177 ==
LOC: LL.ED 23:21 → LL.MS 05-21 01:45
PROVIDERS: ADMIT Family Medicine; ATTEND Family Medicine
DX: J69.0 Pneumonitis due to inhalation of food and vomit (principal); I25.10 Atherosclerotic heart disease of native coronary artery without angina pectoris; I63.9 Cerebral infarction, unspecified; I50.9 Heart failure, unspecified; R40.20 Unspecified coma; A41.9 Sepsis, unspecified organism; I25.810 Atherosclerosis of coronary artery bypass graft(s) without angina pectoris; I50.30 Unspecified diastolic (congestive) heart failure; K56.7 Ileus, unspecified; Z51.5 Encounter for palliative care; I49.1 Atrial premature depolarization; I11.0 Hypertensive heart disease with heart failure; Z95.5 Presence of coronary angioplasty implant and graft; F17.210 Nicotine dependence, cigarettes, uncomplicated; E03.9 Hypothyroidism, unspecified; J44.9 Chronic obstructive pulmonary disease, unspecified; F41.8 Other specified anxiety disorders; I95.9 Hypotension, unspecified; E87.6 Hypokalemia; R09.02 Hypoxemia; Z86.14 Personal history of Methicillin resistant Staphylococcus aureus infection; K21.9 Gastro-esophageal reflux disease without esophagitis; K44.9 Diaphragmatic hernia without obstruction or gangrene; M19.90 Unspecified osteoarthritis, unspecified site; M81.0 Age-related osteoporosis without current pathological fracture; Z79.899 Other long term (current) drug therapy; Z88.5 Allergy status to narcotic agent
CPT/HCPCS: 36000; 70450; 71010; 71275; 74000; 84146; 85025; 85379; 85610; 85730; 87040 ×2; 99285; Q9967; 36415; 51703; 80053; 82272; 82550; 82553; 83880; 84484; 87641; 93005; 94640; 94664; A9270-GY; C9113; J1940; J2270; J2405; J2543; J3010; J3370; J3480; J7030; J7050; J7060; J7120